=== PATIENT | male | born 1955 | race Caucasian/White ===

== ENCOUNTER 2019-12-25 13:23 | Observation (INO) | payer MEDICARE, SELFPAY ==
[2019-12-25] VITALS (37 sets, daily range): BP systolic 91–145; BP diastolic 46–86; PULSE 65–90; RESP 16–20; TEMP 36.7–36.8; O2SAT 93–97; BMI 29.0
--- NOTE | 2019-12-25 08:37 | ECG_ITS ---
Intraprocedure shortess of breath WITH CHEST PAIN 3-10. ONCE TEST WAS COMPLETE ARRYTHMIAS WERE NOTED ON THE EKG. THE PATIENT WAS ESCORTED TO THE BED TO LIE DOWN, BP 140/66. HR 125. AFTER 2 MINUTES OF RECOVERY THE CHEST PAIN WAS 4-10, BP 140/65, [address] 95[address] MTZ WAS NOTIFIED BY Chu BALL RN, [facility]. DR MTZ WILL COME TO [facility] TO LOOK AT EKGs PRIOR TO PATIENT GOING FOR 2ND SET OF NUCLEAR IMAGES. EXERCISE DATA: The patient was exercised by Coleman protocol. Baseline heart rate was 64 beats per minute. Baseline blood pressure was 109/68 millimeters of mercury. Target heart rate was 154 beats per minute. Maximum heart rate achieved was 166, which was 107 % of the target heart rate. Maximum blood pressure was 153/87 millimeters of mercury. Total exercise time was 5 minutes 53 seconds. Maximum METs achieved was 7.0, maximum VO2 was 24.5. The reason for ending the test was arrhythmia/ventricular tachycardia. The patient complained of [chest pain shortness of breath and dizziness, nonsustained ventricular tachycardia noted. Test was immediately stopped. Patient converted back into sinus rhythm immediately. He did not lose consciousness. ELECTROCARDIOGRAM: BASELINE: Showed sinus rhythm, normal axis, no significant ST-T changes at the baseline noted. EXERCISE: At the peak exercise level, ventricular tachycardia noted. Stress test was immediately stopped patient complained of chest pressure. He remained stable vital kemp RECOVERY: During the recovery period, and inferolateral ST depression noted. No arrhythmia noted CONCLUSION: 1. Exercise capacity fair. 2. Heart rate response was appropriate. 3. Blood pressure response was appropriate. 4. Symptoms suggestive of ischemia. 5. Electrocardiogram portion of the stress test was strongly suggestive of ischemia. 6. Nuclear scan will not be performed as patient has strongly positive EKG portion of stress test. We are planning to take patient to Bending Roll Operator immediately. Electronically Signed On 12-28-2019 18:10:56 CDT by Eduardo Mtz M.D. [email or web address]
--- NOTE | 2019-12-25 08:38 | NMCV_ITS ---
NM khadijah perf SPECT r/s* [id number] Tomas Vizcarra Age: 64 Gender: M : 1955 Exam Date: 12/25/2019 09:49 Ordering Phys: Kevan Sy Technologist: [place] Ron Exam Location: [facility] Indications: CHEST PAIN/ SHORTNESS OF BREATH STRESS TEST Please see separate stress test report in [facility] for full findings IMAGE PROTOCOL Rest Exercise Radiopharmaceutical Dose (mCi) Administration Site Administered by Rest: Tc-99m 10.7 IV [place]LL[place] Bautista Sestamibi Stress:Tc-99m 32.8 IV [place] Bautista Sestamibrooklynn Rest: 12/25/2019 60 Discovery 630 12/25/2019 0 Discovery 630 Radiopharmaceutical was injected at 85 % maximum heart rate. Stress images not taken. Patient transfered straight to shift lab technician from treadmill. SPECT RESULTS Technical Quality: Excellent Raw Data Analysis: Normal Image Corrections: No attenuation or motion correction applied Summed Stress Score: 0 Summed Rest Score: 2 Summed Difference Score: 0 PERFUSION FINDINGS Please note that this is a baseline rest images as patient due to ventricular tachycardia was taken to the Coin Teller. There is basal to mid anterior wall perfusion defect suggestive of lesion in the LAD Stress Image LV EF (%):Stress EDV (mL):EDVI (ml/m squared ):TID: Stress ESV (mL): ESVI (ml/m squared ): Rest Image LV EF (%): FUNCTIONAL FINDINGS: Not assess as there is no cine loop IMPRESSIONS Please note that this is a baseline rest images as patient due to ventricular tachycardia was taken to the Coin Teller. There is basal to mid anterior wall perfusion defect suggestive of lesion in the LAD Eduardo Mtz MD (Electronically Signed) Final Date: 27 December 2019 14:14 S
--- NOTE | 2019-12-25 11:07 | PC.NURSE ---
THE PATIENT HAD A POSITIVE TREADMILL STRESS TEST. DR BOYKIN IN [facility] AND ORDERED A LHC TO BE DONE AT 1300. THE PATIENT VERBALIZED HIS UNDERSTANDING. HE WILL BE AMBULATED OVER TO CPRU ROOM 4 TO BE PREPPED FOR LHC. ONCE IN THE ROOM THE PATIENT UPDATED HIS SPOUSE WHO IS IN THE VEHICLE IN THE HOSPITAL PARKING LOT. SHE WILL GO HOME TO [place], [place] AND DR. BOYKIN WILL CALL AFTER AFTER THE PROCEDURE.
[2019-12-25 11:52] LABS: Basophils # 0.1 10^3/uL (0.0-0.1); Basophils % 0.8 %; Eosinophils # 0.1 10^3/uL (0.0-0.8); Eosinophils % 0.6 %; Hematocrit 43.9 % (42.0-52.0); Hemoglobin 14.1 g/dL (11.7-16.6); Lymphocytes # 1.7 10^3/uL (0.8-4.8); Lymphocytes % 19.5 %; Mean Corpuscular HGB Conc 32.1 g/dL (30.0-36.0); Mean Corpuscular Hemoglobin 29.7 pg (28.0-34.0); Mean Corpuscular Volume 92.6 fL (80-94); Mean Platelet Volume 10.8 fL (7.4-10.4); Monocytes # 0.7 10^3/uL (0.2-0.9); Monocytes % 7.9 %; Neutrophils # 6.1 10^3/uL (1.8-7.7); Nucleated Red Blood Cells % 0 %; Platelet Count 185 10^3/cmm (130-400); Red Blood Count 4.74 10^6/uL (4.1-5.3); Red Cell Distribution Width 12.8 % (12.1-15.1); White Blood Count 8.6 10^3/uL (4.0-10.0)
[2019-12-25] MEDS: diphenhydrAMINE 50 mg Capsule PO (12:07)
[2019-12-25 12:20] LABS: INR 1.02 (0.8-1.2)
[2019-12-25 12:31] LABS: Anion Gap 18.6 (5-19); Blood Urea Nitrogen 13 mg/dL (8-23); Calcium 9.5 mg/dL (8.5-10.5); Carbon Dioxide 25 mmol/L (22-29); Chloride 100 mmol/L (98-107); Glomerular Filtration Rate 96.7 mL/min (90-130); Glucose 139 mg/dL (65-115); Osmolality Calculated 286 mOsm/kg (285-295); Potassium 4.6 mmol/L (3.5-5.1); Sodium 139 mmol/L (136-145)
--- NOTE | 2019-12-25 13:00 | XACV_ITS ---
Exam Room: [facility] Ht: 183 cm Wt: 97 kg BSA: 2.24 m2 Gender: Male : 1955 Any Known Allergies: No known allergies Exam Priority: Routine Procedure(s): Procedure Description: Diagnostic procedure Procedure Description: PCI procedure Procedure Description: Drug Eluting Coronary Stent Procedure Description: PTCA Procedure Description: Coronary Angiography Diagnostic Cath Status: Elective PCI Status: Emergency PCI Indication: NSTE - ACS Conclusions Indication for angiogram/PCI: Patient for worsening of angina underwent stress test today . On the treadmill patient was noted to have ventricular tachycardia along with chest pain for which test was stopped immediately. He was taken to the Service Employee he was found to have significant 95% proximal LAD stenosis treated with drug-eluting stent. Recommendations 1-Return to inpatient for close monitoring and routine cath care 2-Risk factor modification for secondary prevention 3-Statin and aspirin 81 mg life--long, if tolerated 4-Patient was pre-loaded with 600 mg of Plavix, continue Plavix 75mg p.o. daily for at least one year. We will assess at the end of one year again to continue if further or not 5-Continue optimal medical management 6-Follow up with Dr. Mtz in four weeks and your primary care in 10 days . Interventional RX Recommendation: PCI w/o planned CABG Diagnostic RX Recommendation: PCI w/o planned CABG Pressures Phase:Rest AO : / ( 0 mmHg ) @ 8:53:00 AM 145 mmHg / 121 mmHg ( 133 mmHg ) @ 8:54:00 AM 125 mmHg / 92 mmHg ( 107 mmHg ) @ 8:59:00 AM 139 mmHg / 89 mmHg ( 110 mmHg ) @ 9:00:00 AM 124 mmHg / 121 mmHg ( 102 mmHg ) @ 9:06:00 AM 123 mmHg / 84 mmHg ( 103 mmHg ) @ 9:11:00 AM 120 mmHg / 115 mmHg ( 102 mmHg ) @ 9:17:00 AM 114 mmHg / 83 mmHg ( 94 mmHg ) @ 9:26:00 AM Clinical Evaluation EBL: 5mL-10mL Procedural Details Procedure Consent Obtained. Pre-Procedure Time Out. Identified patient by full name and date of as verbalized by the patient/guarantor. Does the consent match the physician's order: Yes. Accurate & Complete Informed Consent: Yes. Inpatient/Outpatient History & Physical on Chart: Yes. If H&P is completed, is and addenduem needed: Yes; If yes, is the addendum complete: N/A. Visualize and Verify Site with Patient/Guarantor: N/A. Relevant Radiology Images available: Yes. Pre-op teaching completed and patient verbalized understanding. The risks, benefits, and alternatives of sedation and/or procedure were discussed by physician. The patient agrees to continue. Procedure started. PERRLA. Strong, equal hand carpenter foreman bilaterally. Lungs clear x 5 lobes. IV Site on Arrival: 22 gauge in the right wrist. IV Fluids: 0.9% NaCl at KVO. 0 mL infused prior to cathode ray tube salvage processor. Pre Procedural Pulses: right radial was 3+. Oxygen started at 2liters/min via nasal canula. right groin was prepped with chloroprep then draped in the usual sterile fashion. right radial was prepped with chloroprep then draped in the usual sterile fashion. Baseline sample Acquired. HR: 90 BPM. Physician notified. Patient's family unavailable. Baseline sample Acquired. HR: 79 BPM. Physician arrived. [facility] Clinical Fraility Score: 3: Managing Well. Service Employee Indications: Worsening Angina. Service Employee Indications: New Onset Angina. Chest Pain Symptom Assessment: Typical Angina Symptoms. Correct patient, site and procedure confirmed by cath team. Current diagnosis: Chest Pain. Physician scrubbed in. Immediate Pre-Procedure Time Out. Correct Patient: Yes; Correct Procedure: Yes; Correct Site: Yes; Correct Patient Position: Yes; Correct Supplies: Yes; Dried Flammable Prep: Yes; Blood Products Available: N/A;. Lidocaine 1% infiltrated to the right radial. Arterial access obtained. A 6 kosovan TIG catheter in over wire. Multiple views taken of left coronary artery. Catheter redirected to the RCA. Multiple views taken of right coronary artery. Catheter removed over the exchange wire. 6 kosovan XB 3.5 SH guide catheter was inserted over the wire. PCI Indication: New Onset Angina. Guide catheter out. 6 kosovan JL 4 SH guide catheter was inserted over the wire. [place] guidewire was advanced through the guide catheter to lesion in the prox LAD. Inflation number : 1 A AB TREK 2.50X15 RX BALLOON was prepped and advanced across the Prox LAD , then inflated to 12 STEPHANIE for 0:18 seconds. Inflation number: 2 The AB TREK 2.50X15 RX BALLOON was reinflated across the Prox LAD, to 12 STEPHANIE for 0:11 seconds. Balloon out. Inflation Number : 3 A MDT R COLEEN 3.0X18 BRIAN -Lot Number# [id number] exp. 07/19/2021 was prepped and advanced across the Prox LAD. The stent was deployed at 14 STEPHANIE for 0:23 seconds. Stent balloon out over wire. Inflation number : 4 A MDT NC EUPHORA RX [id number] BALLOON was prepped and advanced across the Prox LAD , then inflated to 10 STEPHANIE for 0:18 seconds. Inflation number: 5 The MDT NC EUPHORA RX [id number] BALLOON was reinflated across the Prox LAD, to 12 STEPHANIE for 0:20 seconds. Balloon and wire out. Results checked. Guide catheter out. Guide catheter out. TR band placed. Hemostasis obtained. Vital chart was stopped. A TR Band was successful obtaining hemostatsis at the Right Radial artery insertion site. Post Procedure: Pulses reassessed and unchanged. PERRLA. Strong, equal hand carpenter foreman bilaterally. No VTE prophylaxis required. Contrast type used: Omnipaque 300 mgI/mL, 500 mL bottle. Omnipaque 220mL. Post-op diagnosis: Worsening Angina. Complications: None. Medication's Wasted: Lidocaine 1% = 18 mL. Medication's Wasted: Heparin = 3000 units. Medication's Wasted: Nitro = 49.8 mg. Total IV fluids: 150 mL. Estimated blood loss: 5mL-10mL. Procedure completed. Patient transferred by wheelchair to 1st floor. Site: Right Radial artery Sheath Size: 6 Fr Hemostasis Method: TR Band Hemostasis Success: Successful Procedure Medications Start: 1:38 PM Stop: 1:38 PM Medication: Versed Amount: 1 mg Route: I.V. Start: 1:38 PM Stop: 1:38 PM Medication: Fentanyl Amount: 50 mcg Route: I.V. Start: 1:43 PM Stop: 1:43 PM Medication: Versed Amount: 1 mg Route: I.V. Start: 1:43 PM Stop: 1:43 PM Medication: Fentanyl Amount: 50 mcg Route: I.V. Start: 1:48 PM Stop: 1:48 PM Medication: Nitrogylcerin Amount: 200 mcg Route: I.A. Start: 1:51 PM Stop: 1:51 PM Medication: Heparin Amount: 5000 units Route: I.V. Start: 1:56 PM Stop: 1:56 PM Medication: Heparin Amount: 3000 units Route: I.V. Start: 2:09 PM Stop: 2:09 PM Medication: Versed Amount: 1 mg Route: I.V. Start: 2:09 PM Stop: 2:09 PM Medication: Fentanyl Amount: 50 mcg Route: I.V. Start: 1:56 PM Stop: 1:56 PM Medication: Aggrastat 12.5 mg/250 mL Amount: 49 ml Route: I.V. bolus Start: 1:56 PM Stop: 1:56 PM Medication: Aggrastat 12.5 mg/250 mL Amount: 17.6 ml/hr Route: I.V. drip Start: 2:17 PM Stop: 2:17 PM Medication: Versed Amount: 1 mg Route: I.V. Start: 2:17 PM Stop: 2:17 PM Medication: Fentanyl Amount: 50 mcg Route: I.V. I, the attending physician, have reviewed and verified all procedure medications. Yes, all medications given per verbal order History/Risk Factors Hypertension: Yes Dyslipidemia: No Diabetic Therapy: Oral Peripheral Arterial Disease (PAD): No Myocardial Infarction (HI): No Obesity: No Renal Disease: No Tobacco Use: Never Prior Interventions PCI: No CABG: No Valve Surgery: No Report Signatures Finalized by:Eduardo Mtz MD on 01/07/2020 6:38:09 PM
--- NOTE | 2019-12-25 13:14 | SUR.PREOP ---
DR BOYKIN AT BEDSIDE. H & P COMPLETED AND THE PATIENT WAS AMBULATED TO THE EDITORIAL PROJECT MANAGER WITH THIS NURSE AND BENITO BALL RN, [facility].
--- NOTE | 2019-12-25 13:19 | PM.HP ---
Providers/Chief Complaint Admitting Physician: Eduardo Mtz MD Primary Care Provider: Kevan Sy Chief Complaint: Chest Pain, Shortness of Breath History of Present Illness Tomas Vizcarra is a 64 year old male referred for stress test due to worsening of chest pain and shortness of breath upon mild to moderate exertion by Dr. Sy. In second and 1/2-minute of treadmill stress test patient started feeling chest pain shortness of breath, fast ventricular tachycardia was noted patient was immediately moved to bed and advised to cough. He immediately converted back into sinus rhythm complaining of some chest pressure which over couple of minutes got better. I examined and interviewed the patient. Currently stable. Patient past medical history significant for hypertension and diabetes mellitus type 2. He is on metformin. He denies history of smoking. For the past few weeks he has been struggling with worsening of shortness of breath and chest pressure every time he walks especially uphill. Since patient has ventricle tachycardia he falls under unstable category therefore we will proceed with coronary angiogram now. Patient has been explained all risk benefit and alternative for the procedure. He was explained the risk of stroke bleeding hematoma emergent coronary artery bypass surgery. He would like to proceed with it. Medications/Allergies Home Medications Medication Instructions Recorded Confirmed Last Taken Type lisinopril 10 mg PO DAILY 12/25/19 12/25/19 12/23/19 06:30 History metformin 500 mg PO DAILY 12/25/19 12/25/19 12/24/19 06:30 History metoprolol succinate 50 mg PO DAILY 12/25/19 12/25/19 12/23/19 06:30 History Allergies Allergy/AdvReac Type Severity Reaction Status Date / Time No Known Allergies Allergy Verified 12/25/19 12:25 PFSH Acute PFSH: Medical History (Updated 12/25/19 @ 13:33 by Eduardo Mtz MD) Diabetes mellitus, type II HTN (hypertension) Social History Smoking and tobacco status: never smoked Vitals/I&O/Wt Last Vital Signs Temp 98.2 F 12/25/19 12:12 Pulse 82 12/25/19 12:12 Resp 16 12/25/19 12:12 BP 118/86 12/25/19 12:12 Pulse Ox 97 12/25/19 12:12 Weight last 48 hrs Weight 214 lb Weight 214 lb Physical Exam Narrative: EXAM NARRATIVE: GENERAL: Patient is alert, awake and oriented x3. NECK: No jugular vein distension. HEENT: No cyanosis. No icterus. No pallor. HEART: Regular S1 and S2. No murmur, rub or gallop. LUNGS: Clear to auscultate bilaterally. ABDOMEN: Soft, nontender and nondistended. Positive bowel sounds. No guarding, rebound or tenderness. CENTRAL NERVOUS SYSTEM: Grossly nonfocal. EXTREMITIES: Lower extremities without edema bilaterally. Data : 12/25/19 11:31 12/25/19 11:31 A&P Assessment and plan (1) Unstable angina: Patient had ventricle tachycardia noted in the early part of the stress test. Stress test was stopped. He was feeling chest pain which is resolved now. Due to high risk for acute coronary syndrome we will take him to the Computer Help Desk Specialist now. Status: Acute Code(s): I20.0 - Unstable angina (2) Ventricular tachycardia: Most likely ischemic. We will proceed with urgent left heart cath. Further plan will be advised. Status: Acute Code(s): I47.2 - Ventricular tachycardia (3) HTN (hypertension): Well-controlled. Continue current regimen. He is on beta-allison and lisinopril Status: Acute Code(s): I10 - Essential (primary) hypertension (4) Diabetes mellitus, type II: Status: Acute Code(s): E11.9 - Type 2 diabetes mellitus without complications Attestations Medical Necessity Statement*: I am not expecting his stay to cross more than 1 midnight Coding Level of Care Code New Pt Acute Director Channel for g Fwd Patient Type New History Detailed Exam Detailed Medical Decision Making High Complexity Diagnoses Unstable angina I20.0 Ventricular tachycardia I47.2 HTN (hypertension) I10 Diabetes mellitus, type II E11.9
--- NOTE | 2019-12-25 14:45 | USCV_ITS ---
Zackery Tomas Age: 64 Gender: M : 1955 Exam Date: 12/25/2019 15:04 Ordering Phys: Eduardo Mtz MD ([email or web address]) Technologist: Mary Alice Golden Exam Location: [facility] [place] Indication: CHEST PAIN, VTACH BP: 130 / 72 HR: 70 Rhythm: Sinus Technical Quality: Adequate MEASUREMENTS (Male / Female) Normal Values 2D ECHO LV Diastolic Diameter PLAX 3.8 cm 4.2 - 5.9 / 3.9 - 5.3 cm LV Systolic Diameter PLAX 2.2 cm LV Chamber Size 3.5 cm IVS Diastolic Thickness 1.2 cm 0.6 - 1.0 / 0.6 - 0.9 cm IVS Systolic Thickness 1.6 cm LVPW Diastolic Thickness 2.2 cm 0.6 - 1.0 / 0.6 - 0.9 cm LVPW Systolic Thickness 2.3 cm RV Chamber Size 2.4 cm LVOT Diameter 2.1 cm LV Ejection Fraction 2D Teich 75.1 % LV Ejection Fraction MOD 2C 48.2 % LV Ejection Fraction 2C AL 48.9 % LA Diameter 4.1 cm LA Width 2.9 cm LA Height 4.2 cm RA Width 1.8 cm RA Height 3.2 cm Aorta at Sinotubular Diameter 3.0 cm M-MODE LV Diastolic Diameter MM 4.6 cm 4.2 - 5.9 / 3.9 - 5.3 cm LV Systolic Diameter MM 3.2 cm LV Ejection Fraction MM Teich 57.5 % IVS Diastolic Thickness MM 1.2 cm 0.6 - 1.0 / 0.6 - 0.9 cm IVS Systolic Thickness MM 1.3 cm LVPW Diastolic Thickness MM 1.2 cm 0.6 - 1.0 / 0.6 - 0.9 cm LVPW Systolic Thickness MM 1.7 cm Aortic Annulus Diameter 3.4 cm LA Ao Ratio MM 1.2 MV E Point Septal Separation 0.8 cm DOPPLER AV Peak Velocity 130.0 cm/s LVOT Peak Velocity 92.0 cm/s AV Area Cont Eq vti 2.5 cm squared AV Area Cont Eq pk 2.4 cm squared MV Area PHT 6.7 cm squared Mitral E to A Ratio 0.5 MV E' Velocity 13.0 cm/s Mitral E to MV E' Ratio 3.5 Mitral E to LV E' Lateral Ratio 2.7 Mitral E to LV E' Septal Ratio 4.8 TR Peak Velocity 127.0 cm/s TR Peak Gradient 6.5 mmHg TV Peak E Velocity 51.0 cm/s Right Atrial Pressure 3.0 mmHg Pulmonary Artery Systolic Pressu 9.5 mmHg PV Peak Velocity 102.0 cm/s RV Acceleration Time 0.1 s RV Ejection Time 0.3 s RV AcT/ET 0.4 FINDINGS Left Ventricle Normal left ventricular cavity size. Normal left ventricular systolic function. No regional wall motion abnormalities. Left ventricular ejection fraction is estimated at 57 %. No regional wall motion abnormalities. Grade I/IV diastolic dysfunction (abnormal relaxation filling pattern), normal to mildly elevated filling pressures. Right Ventricle The right ventricle is normal in size and function. Right Atrium The right atrium is normal in size. Left Atrium The left atrium is normal in size. Mitral Valve Structurally normal mitral valve without significant stenosis or prolapse. There is no mitral regurgitation. Aortic Valve Structurally normal aortic valve without significant sclerosis or stenosis. There is no aortic regurgitation. Tricuspid Valve Structurally normal tricuspid valve without significant stenosis or regurgitation. Pulmonary artery systolic pressure is normal. Pulmonic Valve Structurally normal pulmonic valve without significant stenosis. There is no pulmonic regurgitation. Pericardium Normal pericardium without effusion. Aorta Normal ascending aorta dimension. CONCLUSIONS 1-Normal left ventricular cavity size. Normal left ventricular systolic function. No regional wall motion abnormalities. Left ventricular ejection fraction is estimated at 57 %. No regional wall motion abnormalities. Grade I/IV diastolic dysfunction (abnormal relaxation filling pattern), normal to mildly elevated filling pressures. 2-No significant chamber abnormalities. 3-There is no pericardial effusion. 4-No significant valve abnormalities. 5-Pulmonary artery systolic pressure is within normal limits. 6-Right atrial pressure is around 5 mm of mercury. 7-There are no prior echocardiogram studies to compare. Eduardo Mtz MD (Electronically Signed) Final Date: 25 December 2019 18:45 S
--- NOTE | 2019-12-25 15:09 | PC.NURSE ---
JEAN PAUL BOYKIN ASKED NURSE TO NON ADMINISTER 1800 DOSE OF BRILINTA 90MG.
[2019-12-25] MEDS: ticagrelor 90 mg Tablet 180 MG PO (15:16)
--- NOTE | 2019-12-25 17:02 | PC.NURSE ---
AGGRASTAT STOPPED AT 1600.
[2019-12-25] MEDS: atorvastatin 40 mg Tablet PO (20:06)
[2019-12-25 20:56] LABS: Glucose Point of Care 98 mg/dL (70-110)
--- NOTE | 2019-12-25 22:00 | PC.NURSE ---
TR Band removed from right wrist. Pressure dressing applied. IV site to right wrist cleaned with new kyara guard applied. Will monitor.
[2019-12-26] VITALS: BP 115/56; PULSE 70; RESP 18; O2SAT 94
[2019-12-26 01:00] VITALS: BP 113/67; PULSE 66; RESP 18; O2SAT 95
--- NOTE | 2019-12-26 02:12 | PC.NURSE ---
Patient resting with eyes closed. Respirations even and unlabored. Dressing to right wrist dry and intact with no hematoma or drainage noted. Will monitor.
[2019-12-26] MEDS: acetaminophen 325 mg Tablet 650 MG PO (03:21)
--- NOTE | 2019-12-26 03:25 | PC.NURSE ---
Complaining of posterior left shoulder pain with no radiation to arm or jaw. Rating pain at 2 out of 10. Tylenol 650mg PO given per patient request. Will monitor.
[2019-12-26 04:00] VITALS: BP 95/73; PULSE 66; RESP 18; TEMP 36.6; O2SAT 96
[2019-12-26 04:39] LABS: Basophils # 0.1 10^3/uL (0.0-0.1); Basophils % 0.8 %; Eosinophils # 0.2 10^3/uL (0.0-0.8); Eosinophils % 2.4 %; Hematocrit 41.2 % (42.0-52.0); Hemoglobin 13.2 g/dL (11.7-16.6); Lymphocytes # 2.5 10^3/uL (0.8-4.8); Lymphocytes % 31.6 %; Mean Corpuscular Hemoglobin 30.4 pg (28.0-34.0); Mean Corpuscular Volume 94.9 fL (80-94); Mean Platelet Volume 10.5 fL (7.4-10.4); Monocytes # 0.9 10^3/uL (0.2-0.9); Monocytes % 10.8 %; Neutrophils # 4.3 10^3/uL (1.8-7.7); Neutrophils % 54.1 %; Nucleated Red Blood Cells % 0 %; Platelet Count 169 10^3/cmm (130-400); Red Blood Count 4.34 10^6/uL (4.1-5.3); White Blood Count 7.9 10^3/uL (4.0-10.0)
[2019-12-26 04:59] LABS: Anion Gap 16.1 (5-19); Blood Urea Nitrogen 14 mg/dL (8-23); Calcium 8.8 mg/dL (8.5-10.5); Carbon Dioxide 23 mmol/L (22-29); Chloride 102 mmol/L (98-107); Glomerular Filtration Rate 74.8 mL/min (90-130); Glucose 99 mg/dL (65-115); Osmolality Calculated 280 mOsm/kg (285-295); Potassium 4.1 mmol/L (3.5-5.1); Sodium 137 mmol/L (136-145)
[2019-12-26 06:22] LABS: Glucose Point of Care 102 mg/dL (70-110)
[2019-12-26 07:20] VITALS: BP 115/71; PULSE 62; RESP 18; TEMP 36.5; O2SAT 96
[2019-12-26] MEDS: aspirin 81 mg EC Tablet PO (09:16)
[2019-12-26] MEDS: ticagrelor 90 mg Tablet PO (09:16)
[2019-12-26] MEDS: metoprolol succinate ER (24 HR) 50 mg Tablet PO (09:16)
[2019-12-26] MEDS: lisinopril 10 mg Tablet PO (09:16)
[2019-12-26 10:59] VITALS: BP 108/69; PULSE 65; RESP 18; TEMP 36.9; O2SAT 96
[2019-12-26 11:25] VITALS: BP 108/69; PULSE 65; RESP 18; TEMP 36.9; O2SAT 96
[2019-12-26 11:27] LABS: Glucose Point of Care 109 mg/dL (70-110)
--- NOTE | 2020-01-15 17:37 | PM.DCS ---
Discharge Providers Date of Admission: 12/25/19 13:23 Date of Discharge: 2019 Attending Provider at Admission: Eduardo Mtz MD Attending Provider at Discharge: Kevan Sy Primary Care Provider: Kevan Sy Diagnoses at Discharge Discharge Diagnosis (1) Unstable angina: Status: Acute (2) Ventricular tachycardia: Status: Acute (3) HTN (hypertension): Status: Acute (4) Diabetes mellitus, type II: Status: Acute Reason for Visit Reason for Visit: Reason For Visit: Chest Pain, Shortness of Breath Hospital Course Hospital Course: 64-year-old male for angina underwent stress test during stress test patient had episode of ventricular tachycardia he was taken to the Manager Implementation. He was found to have significant proximal LAD lesion which was treated with drug-eluting stent. Postop course remains uncomplicated. Patient did overnight fine. Next morning he was discharged home. He He will be following up with Dr. Mtz in the cardiology clinic. Discharge Data Data Completed and Pending: Completed Studies During Hospitalization Category Date Time Status SUBSURFACE AUGMENTEE OPERATOR request for service Routin e Exams 12/25/19 13:[address] MIBI [Sestamibi Stress Test Reque st Exams 12/25/19 08:37 Completed ] Routine NM khadijah perf SPECT r/s* 59611 Routin e Nuc Med 12/25/19 08:38 Completed CV echo complete* [id number] Routine Ultrasound 12/25/19 14:45 Completed Vitals: Last Vital Signs Temp 98.4 F 12/26/19 11:25 Pulse 65 12/26/19 11:25 Resp 18 12/26/19 11:25 BP 108/69 12/26/19 11:25 Pulse Ox 96 12/26/19 11:25 Discharge Plan Discharge Patient Disposition: Home, Self-Care Condition: Stable Prescriptions: New atorvastatin 40 mg Tablet 40 mg PO BEDTIME Qty: 90 RF: 4 aspirin 81 mg Tablet,Delayed Release (Dr/Ec) 81 mg PO DAILY Qty: 90 RF: 4 Brilinta 90 mg Tablet 90 mg PO BID Qty: 90 RF: 0 Continued metoprolol succinate 50 mg Tablet Extended Release 24 Hr 50 mg PO DAILY RF: 0 lisinopril 10 mg Tablet 10 mg PO DAILY RF: 0 No Action metformin 500 mg tablet 1,000 mg PO DAILY RF: 0 Discharge Orders: Discharge Order (Routine); Ordered 03/31/20 Ordered By: Eduardo Mtz Referrals: Eduardo Mtz MD [Physician] - (You have follow-up appointment with Dr. Mtz on April 01 at 3:45p.m. If, you have any questions or need to reschedule. Please, call ) Sara Maria FNP [Nurse Practitioner] - (You have an telephone follow-up with Sara Maria on January 01 at 11:30a.m. If, you have any questions, please call ) Discharge Diet: Cardiac and Diabetic Discharge Activity: Resume usual activity Patient Instructions: Aspirin (By mouth), Atorvastatin (By mouth), Ticagrelor (By mouth), Supraventricular Tachycardia (DC), Left Heart Catheterization (DC), Right Heart Catheterization (DC), Coronary Angioplasty (DC), Diabetes Mellitus Type 2 in Adults (DC), Acute Coronary Syndrome (GEN), Hypertension (DC), Post Angiogram Home Care Instructions Activity Restrictions/Additional Instructions: Do not lift more than gallon of milk for next 2 days. Follow-up with Sara Maria cardiology nurse practitioner in [address] Mtz in 3 months Discharge Date/Time: 12/26/19 12:15 Discharge Attestations Time Spent in Discharge Care*: greater than 30 min Specific Discharge Activities: Specific discharge activities: educating patient Quality Metrics Clinical Quality Measures During this hospital stay, did patient experience: None Coding Level of Care Code New Pt Acute [employer] Rep for Chg Fwd Patient Type New History Expanded Problem Focused Exam Expanded Problem Focused Medical Decision Making Moderate Complexity Diagnoses Unstable angina I20.0 Ventricular tachycardia I47.2 HTN (hypertension) I10 Diabetes mellitus, type II E11.9
== END 2019-12-26 12:15 | disposition home or self-care (01) ==
LOC: CSU 13:29
PROVIDERS: Admitting Provider Internal Medicine Cardiovascular Disease; Family Provider Family Medicine; PCP Family Medicine; Visit Provider Family Medicine
DX: I20.0 Unstable angina (principal); I47.2 Ventricular tachycardia; I10 Essential (primary) hypertension; E11.9 Type 2 diabetes mellitus without complications; Z79.84 Long term (current) use of oral hypoglycemic drugs
CPT/HCPCS: 12345; 36415; 36416; 78452; 80048; 82962; 85025; 85610; 93306; 93454; A9500; C1725; C1769; C1874; C1887; C1894; C9600; G0378; J1644; J2001; J2250; J3010; J3246; J3490; J7030; Q0163; Q9967

== ENCOUNTER → 2020-01-02 11:50 | Outpatient (BNVA) | payer MEDICARE, SELFPAY | PROVIDERS: Family Provider Family Medicine; PCP Family Medicine; Visit Provider Nurse Practitioner Family | DX: I25.10 Atherosclerotic heart disease of native coronary artery without angina pectoris (principal); I25.119 Atherosclerotic heart disease of native coronary artery with unspecified angina pectoris | CPT/HCPCS: 80048 ==

== ENCOUNTER → 2020-07-05 12:05 | Outpatient (BNVA) | payer MEDICARE, SELFPAY | PROVIDERS: Family Provider Family Medicine; PCP Family Medicine; Visit Provider Surgery | DX: Z20.828 Contact with and (suspected) exposure to other viral communicable diseases (principal) | CPT/HCPCS: 87635 ==

== ENCOUNTER 2020-07-10 12:48 | Day surgery (SDC) | payer MEDICARE, SELFPAY ==
[2020-07-09 12:35] VITALS: BMI 28.3
[2020-07-10 13:06] VITALS: BP 140/80; PULSE 58; RESP 18; TEMP 36.1; O2SAT 97
--- NOTE | 2020-07-10 13:19 | W.PM.OPSUD ---
Surgery/Procedure H&P Update DATE OF PROCEDURE: July 10, 2020 DATE H&P PERFORMED: 07/05/20 H&P UPDATE INFORMATION: I have reviewed H&P completed within last 30 days, I have examined patient prior to procedure and No changes to prior documentation PREOP DIAGNOSIS: Cholelithiasis PLANNED PROCEDURE: Operation Date: 07/10/20 14:30 Proposed Procedures p Laparoscopic Possible Open Cholecystectomy 94278 K80.20(Not Applicable) - Benny Mathur MD
[2020-07-10 13:29] LABS: Glucose Point of Care 107 mg/dL (70-110)
[2020-07-10] MEDS: sodium chloride 0.9% 1,000 ML 30 ML IV (13:35)
--- NOTE | 2020-07-10 13:37 | ANES.PREANE2 ---
Pre-Anesthetic Assessment Pre-Anesthetic Assessment: Height/Weight: Height 1.83 m Weight 94.801 kg Temp Pulse Resp BP Pulse Ox 97.0 F L 58 L 18 140/80 97 07/10/20 13:06 07/10/20 13:06 07/10/20 13:06 07/10/20 13:06 07/10/20 13:06 Preop Diagnosis: Cholelithiasis Proposed Procedure: Operation Date: 07/10/20 14:30 Proposed Procedures p Laparoscopic Possible Open Cholecystectomy 02757 K80.20(Not Applicable) - Benny Mathur MD Familial anesthetic complications: dizziness for 5 days after his tonsils were taken out as a child Was Beta Silvio taken within 24 hours: Yes Last intake: Intake Last Liquid Date 07/10/20 Last Liquid Time 07:00 Last Solid Date 07/09/20 Last Solid Time 21:00 Social: Social History: No alcohol and No tobacco Exam: Pre-Anes Outpt Exam: alert, oriented x 3, clear to auscultation bilaterally and regular rate & rhythm Airway: Cervical ROM: WNL MP: 3 Dentition: False Additional comments: full hernandez CV/HEM: CV/HEM: CAD (LAD stent placed urgently after V Tach episode during his stress test, off brillinita, approved by farhan - doing well now) and HTN Metabolic: Metabolic: DM and Morbid obesity Anesthetic Plan: ASA status: 3 Anesthesia: General Risk of > 500 ml blood loss (7ml/kg in children): No Meds/Allergies Current Medications: Current Medications Generic Name Dose Route Start Last Admin Trade Name Freq PRN Reason Stop Dose Admin Sodium Chloride 1,000 mls @ 30 ml s/hr 07/10/20 13:15 07/10/20 13:35 Sodium Chloride 0.9% IV 07/11/20 13:14 30 mls/hr .Q24H [facility] Administration PFSH Anesthesia PFSH: Medical History CAD (coronary artery disease) Coronary artery disease Diabetes mellitus, type II HTN (hypertension) Surgical History (Updated 07/10/20 @ 13:21 by Benny Mathur MD) H/O circumcision H/O heart artery stent H/O vasectomy with reversal History of tonsillectomy Status post laparoscopic cholecystectomy (07/10/20) Family History Mother Cancer Diabetes Hypertension Grandfather Cancer Hypertension Grandmother Cancer Hypertension Sister Hypertension Father Cancer Denies family history of CAD (coronary artery disease) Clotting disorder Dementia Hyperlipidemia Psychiatric illness Chronic kidney disease (CKD) Suicide Anesthesia complication Bleeding disorder Family history of premature coronary artery disease Lung disease Stroke Social History Smoking and tobacco status: never smoked Alcohol intake: current Alcohol intake frequency: holidays/special occasions only Alcohol type: beer Household members: spouse Marital status: Current occupational status: retired History of recent travel: No Data Anesthesia Other Labs: Laboratory Results - last 48 hr 07/10/20 13:26 POC Glucose 107 Cardiac Studies: No Data to Display
--- NOTE | 2020-07-10 13:55 | ECG_ITS ---
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 Measurements Intervals [place] Rate: 53 P: 51 DE: 235 QRS: 3 QRSD: 93 T: 30 QT: 453 QTc: 427 Interpretive Statements SINUS BRADYCARDIA WITH FIRST DEGREE AV BLOCK LOW QRS VOLTAGE IN PRECORDIAL LEADS [QRS DEFLECTION < 1.0 mV IN CHEST LEADS] No previous ECG available for comparison Electronically Signed On 07-11-2020 20:24:09 CDT by Froy Bynum M.D. [id number]
[2020-07-10 14:38] VITALS: BP 100/74; PULSE 52; RESP 18; TEMP 37; O2SAT 97
[2020-07-10 15:27] VITALS: BP 112/68; PULSE 63; RESP 16; TEMP 36.8; O2SAT 99
[2020-07-10 15:30] VITALS: PULSE 58; RESP 15; O2SAT 100
[2020-07-10 15:35] VITALS: BP 108/61; PULSE 58; RESP 16; TEMP 37; O2SAT 99
[2020-07-10 15:57] VITALS: BP 100/74; PULSE 48; RESP 18; TEMP 37; O2SAT 97
[2020-07-10] MEDS: HYDROcodone-acetaminophen 5-325 mg Tablet 1 TAB PO (16:25)
--- NOTE | 2020-07-10 16:30 | ANE.PACU2 ---
Inpatient post-anesthesia follow up: Airway intact: Yes Vital signs: Temperature 98.6 F Pulse Rate 48 Respiratory Rate 18 Blood Pressure 100/74 Pulse Oximetry 97 Oxygen Delivery Me thod Room Air Oxygen Flow Rate 6 Fraction of Inspir ed Oxygen Hydration adequate: Yes Nausea and vomiting: No Pain level: 2 Mental status: Baseline
--- NOTE | 2020-07-11 14:09 | PM.OP ---
Operative Report Date of procedure: July 11, 2020 Pre-op Diagnosis: Cholelithiasis Post-op Diagnosis: Chronic cholecystitis Cholelithiasis Procedure Done: Laparoscopic cholecystectomy Specimens removed/disposition: Gallbladder Surgeon: Benny Mathur Anesthesia: General Condition: stable Disposition: PACU Procedure: The patient was taken to the operating room and was intubated under general anesthesia. After the antibiotic had been administered, the abdomen was prepped and draped in a sterile manner. Using a #15 blade, a 1 centimeter infraumbilical curvilinear incision was made and using an open Denny technique the peritoneal cavity was entered. A 10 millimeter port was placed and 15 millimeters of pneumoperitoneum was created. A 10 millimeter, 30 degrees scope was then introduced. Three 5 millimeter ports were placed in the epigastric, midclavicular and the anterior axillary line two fingerbreadths below the costal margin on the right side under the direct visualization. Ratcheted forceps were introduced into the lateral most port and was used to retract the fundus of the gallbladder cephalad and using forceps the infundibulum of the gallbladder was retracted laterally. Using L-hook cautery the peritoneum overlying the Calot's triangle was opened medially and laterally until the cystic duct and the cystic artery were skeletonized. Dissection was carried along the body of the gallbladder and after ensuring critical view of safety, 4 clips applied on the cystic duct and 3 clips applied on the cystic artery and cut leaving, 3 clips on the remaining portion of the duct and 2 clips on the remaining portion of the artery. The rest of the gallbladder was dissected off the liver using L-hook cautery. There was no bleeding or bile leaking noted from the gallbladder fossa and the clips appeared to be in place. An EndoCatch bag was introduced to remove the gallbladder. All the ports were removed under direct visualization and there was no bleeding noted from the port sites. The fascia of the umbilicus was closed using [id number] 0 Vicryl sutures and the subcutaneous tissue was approximated using 3-0 Vicryl sutures. The skin at all four ports were closed using 4-0 Monocryl and Dermabond. A total of 10 millimeters of 0.5% Marcaine was infiltrated around the port sites. The patient was stable throughout the procedure.
== END 2020-07-10 16:29 | disposition home or self-care (01) ==
PROVIDERS: PCP Family Medicine; Visit Provider Surgery
PROC: 0FT44ZZ Resection of Gallbladder, Percutaneous Endoscopic Approach (ICD-10-PCS; CPT 47562; principal; 2020-07-10 14:30)
DX: K80.10 Calculus of gallbladder with chronic cholecystitis without obstruction (principal); I25.10 Atherosclerotic heart disease of native coronary artery without angina pectoris; I10 Essential (primary) hypertension; E11.9 Type 2 diabetes mellitus without complications; E66.01 Morbid (severe) obesity due to excess calories; Z68.28 Body mass index [BMI] 28.0-28.9, adult; Z79.82 Long term (current) use of aspirin; Z79.84 Long term (current) use of oral hypoglycemic drugs
CPT/HCPCS: 47562; 12345; 36416; 82962; 88304; 93005; J0131; J0690; J2405; J2704; J2710; J2765; J3010; J3490; J7030

== ENCOUNTER → 2022-01-22 14:12 | Outpatient (BNVA) | payer MEDICARE, SELFPAY | PROVIDERS: PCP Family Medicine; Visit Provider Internal Medicine Cardiovascular Disease | DX: R07.9 Chest pain, unspecified (principal); R00.1 Bradycardia, unspecified; I44.0 Atrioventricular block, first degree; I25.10 Atherosclerotic heart disease of native coronary artery without angina pectoris; I10 Essential (primary) hypertension; Z95.5 Presence of coronary angioplasty implant and graft | CPT/HCPCS: 93005; 99214 ==

== ENCOUNTER → 2022-02-18 09:51 | Outpatient (BNVA) | payer MEDICARE, SELFPAY | PROVIDERS: PCP Family Medicine; Referring Provider Family Medicine; Visit Provider Orthopaedic Surgery | DX: M19.012 Primary osteoarthritis, left shoulder (principal); M25.512 Pain in left shoulder | CPT/HCPCS: 73030; 99204 ==

== ENCOUNTER 2022-03-13 10:03 | Outpatient (CLI) | payer MEDICARE, SELFPAY ==
--- NOTE | 2022-03-13 11:00 | CT_ITS ---
WS: [id number] CT LEFT SHOULDER, NONCONTRAST. 3-D imaging. HISTORY: M19.012 - Primary osteoarthritis, left shoulder Technique: All CT scans at [facility] use at least one of these dose optimization techniques: automated exposure control; mA and/or kV adjustment per patient size (includes targeted exams where dose is matched to clinical indication); or iterative reconstruction. DLP: 811.54 mGy.cm COMPARISON: 02/18/2022 Moderate narrowing of the glenohumeral joint. Osteophytic ridging at the humeral head and glenoid. Th ere is bone upon bone along the inferior surface of the glenohumeral joint with associated osteophyte formation. Small subchondral cysts at the humeral head. Very mild narrowing of the AC joint. No suba cromial impingement. No fracture or dislocation. No osseous destruction. Mild atrophy of the supraspi natus muscle. No joint effusion. CT/CT shoulder LT wo con* [id number] IMPRESSION: 1. Moderate narrowing glenohumeral joint with osteophytic ridging contributing to joint space narrowing. 2. No fracture. 3. Mild atrophy supraspinatus muscle. 4. Very mild AC joint arthritis.
== END 2022-03-13 10:04 | disposition home or self-care (01) ==
LOC: RAD 10:04
PROVIDERS: PCP Family Medicine; Visit Provider Orthopaedic Surgery
DX: M19.012 Primary osteoarthritis, left shoulder (principal)
CPT/HCPCS: 73200

== ENCOUNTER 2022-03-16 14:20 | Observation (INO) | payer MEDICARE, SELFPAY ==
[2022-03-11 10:49] VITALS: BMI 29.5
--- NOTE | 2022-03-11 10:53 | ECG_ITS ---
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 Measurements Intervals [place] Rate: 63 P: 53 LA: 232 QRS: -9 QRSD: 88 T: 13 QT: 410 QTc: 421 Interpretive Statements SINUS RHYTHM WITH FIRST DEGREE AV BLOCK LOW QRS VOLTAGE IN PRECORDIAL LEADS [QRS DEFLECTION < 1.0 mV IN CHEST LEADS] POSSIBLE ANTERIOR MYOCARDIAL INFARCTION , PROBABLY OLD [30 ms Q WAVE IN V3/V4, OR R < 0.2 mV IN V4] Compared to ECG 07/10/2020 13:59:55 Myocardial infarct finding now present Sinus bradycardia no longer present Electronically Signed On 03-11-2022 22:23:53 CDT by Inez Spann M.D. [id number]
[2022-03-11 11:26] LABS: Basophils % 0.7 %; Eosinophils # 0.1 10^3/uL (0.0-0.8); Eosinophils % 2.4 %; Hematocrit 43.6 % (42.0-52.0); Lymphocytes # 1.7 10^3/uL (0.8-4.8); Lymphocytes % 28.9 %; Mean Corpuscular HGB Conc 32.1 g/dL (30.0-36.0); Mean Corpuscular Volume 93.6 fl (80-94); Mean Platelet Volume 10.7 fL (7.4-10.4); Monocytes # 0.6 10^3/uL (0.2-0.9); Neutrophils # 3.36 10^3/uL (1.8-7.7); Neutrophils % 57.7 %; Nucleated Red Blood Cells % 0 %; Platelet Count 177 10^3/cmm (130-400); Red Blood Count 4.66 10^6/uL (4.1-5.3); Red Cell Distribution Width 13.3 % (12.1-15.1); White Blood Count 5.8 10^3/uL (4.0-10.0)
--- NOTE | 2022-03-11 11:39 | P.ANESASSM_ITS ---
Pre-Anesthetic Assessment Height/Weight: Height 1.83 m Weight 98.883 kg Preop Diagnosis: Cholelithiasis Operation Date: 03/16/22 12:20 Proposed Procedures p Left Total Shoulder Arthroplasty:24893,M19.012(Left) - Ryan Spencer MD Familial anesthetic complications: none Was Beta Silvio taken within 24 hours: Yes Was Clonidine taken within 24 hours: N/A Social No alcohol and No tobacco Exam alert, oriented x 3, clear to auscultation bilaterally and regular rate & rhythm Airway Submandibular: within normal limits Cervical ROM: within normal limits Mallampati: Class II Dentition: false (upper) CV/HEM Arrythmia, Coronary Artery Disease (stent) and Hypertension Metabolic Diabetes Mellitus Musc/skel Osteoarthritis/DJD Anesthetic Plan ASA status: 3 Anesthesia: General and Regional (specify below) (left interscalene nerve blk) Medications/Allergies Home Medications Medication Instructions Recorded Confirmed Last Taken Type lisinopril 10 mg tablet 10 mg PO DAILY 12/25/19 03/11/22 07/10/20 History aspirin 81 mg tablet,delayed 81 mg PO DAILY #90 tab 12/26/19 03/11/22 07/07/20 Rx release metformin 500 mg tablet 1,000 mg PO DAILY tab 01/02/20 03/11/22 07/09/20 History multivitamin 1 tab PO DAILY 04/01/20 03/11/22 07/09/20 History omega-3 fatty acids 1,000 mg 1,000 mg PO DAILY 04/01/20 03/11/22 07/09/20 History capsule (Fish Oil Concentrate) ticagrelor 90 mg tablet (Brilinta) 90 mg PO BID #180 tab 08/04/21 03/11/22 03/10/22 21:15 Rx nitroglycerin 0.4 mg sublingual 0.4 mg SUBLINGUAL Q5M PRN #30 tab 01/22/22 03/11/22 Unknown Rx tablet trazodone 50 mg tablet 50 mg PO DAILY PRN 01/22/22 03/11/22 Unknown History isosorbide dinitrate 5 mg tablet 5 mg PO BID #180 tab 02/16/22 03/11/22 Unknown Rx atorvastatin 40 mg tablet 40 mg PO BEDTIME #90 tab 03/09/22 03/11/22 Unknown Rx metoprolol succinate 25 mg 25 mg PO DAILY #90 tab 03/11/22 03/11/22 Unknown Rx tablet,extended release 24 hr Allergies Allergy/AdvReac Type Severity Reaction Status Date / Time No Known Allergies Allergy Verified 03/11/22 10:46 [facility] Anesthesia Medical History CAD (coronary artery disease) Coronary artery disease Diabetes mellitus, type II Dyslipidemia HTN (hypertension) Surgical History H/O circumcision H/O heart artery stent H/O vasectomy with reversal History of tonsillectomy S/P cholecystectomy Status post laparoscopic cholecystectomy (07/10/20) Family History Mother Cancer Diabetes Hypertension Grandfather Cancer Hypertension Grandmother Cancer Hypertension Sister Hypertension Father Cancer Denies family history of CAD (coronary artery disease) Clotting disorder Dementia Hyperlipidemia Psychiatric illness Chronic kidney disease (CKD) Suicide Anesthesia complication Bleeding disorder Family history of premature coronary artery disease Lung disease Stroke Social History Smoking and tobacco status: never smoked Alcohol intake: current Alcohol intake frequency: holidays/special occasions only Alcohol type: beer Household members: spouse Marital status: Current occupational status: retired History of recent travel: No Data Anesthesia : 03/11/22 11:00 03/11/22 11:00 Short CBC 03/11/22 Range/Units 11:00 WBC 5.8 (4.0-10.0) 10^3/uL Hgb 14.0 (11.7-16.6) g/dL Hct 43.6 (42.0-52.0) % MCV 93.6 (80-94) fl Plt Count 177 (130-400) 10^3/cmm Neut % (Auto) 57.7 % Neut # (Auto) 3.36 (1.8-7.7) 10^3/uL Cardiac Studies: Echocardiogram Ultrasound 12/25/19 Sestamibi Stress Test (Cardiology) 12/25/19
[2022-03-11 11:53] LABS: Anion Gap 14.9 (5-19); Blood Urea Nitrogen 14 mg/dL (8-23); Calcium 8.7 mg/dL (8.5-10.5); Carbon Dioxide 24 mmol/L (22-29); Chloride 102 mmol/L (98-107); Creatinine Clr Calc Pharmacy 107.6415; Glomerular Filtration Rate 96.1 mL/min (90-130); Glucose 153 mg/dL (65-115); Osmolality Calculated 288 mOsm/kg (285-295); Potassium 3.9 mmol/L (3.5-5.1); Sodium 137 mmol/L (136-145)
[2022-03-16] VITALS (25 sets, daily range): BP systolic 102–131; BP diastolic 35–78; PULSE 52–68; RESP 8–18; TEMP 36.3–36.6; O2SAT 93–100; BMI 29.5
[2022-03-16 08:09] LABS: Glucose Point of Care 123 mg/dL (70-110)
[2022-03-16] MEDS: oxyCODONE 20 mg ER (12 HR) Tablet PO (08:09)
[2022-03-16] MEDS: CELEcoxib 200 mg Capsule 400 MG PO (08:09)
[2022-03-16] MEDS: acetaminophen 500 mg Tablet 1000 MG PO ×2 (08:09→15:12)
[2022-03-16] MEDS: gabapentin 300 mg Capsule PO ×2 (08:09→17:31)
[2022-03-16] MEDS: sodium chloride 0.9% 1,000 ML 30 ML IV (08:17)
--- NOTE | 2022-03-16 09:07 | P.ANESUD_ITS ---
Pre-Anesthetic Update Pre-Anesthetic Assessment: Date of Surgery/Procedure: 03/16/22 Preop Sandra gnosis: Osteoarthritis Left shoulder Proposed Procedure: Operation Date: 03/16/22 09:20 Proposed Procedures p Left Total Shoulder Arthroplasty:42549,M19.012(Left) - Ryan Spencer MD Any changes to Pre-Anesthetic Assessment?: No Changes from Pre-Anesthetic Assessment: We discussed risk and benefits of nerve block for post op pain control including management of pain and titration of pain medications as signs/symptoms of nerve block wearing off begin to appear and/or prior bed. We discussed risk of failed nerve block, vascular injury or other vital structure injury, PTx, post op O2 requirements, abscess/infection, LAST, and nerve injury. Patient would like to proceed with brachial plexus block. Last Intake: Intake Last Liquid Date 03/15/22 Last Liquid Time 23:00 Last Solid Date 03/15/22 Last Solid Time 19:30 Vitals: Temperature 97.5 F L 03/16/22 07:51 Temperature Source Temporal Artery S can 03/16/22 07:51 Pulse Rate 58 L 03/16/22 07:51 Respiratory Rate 15 03/16/22 08:09 Respiratory Effort 03/16/22 08:09 Respiratory Depth Normal 03/16/22 08:09 Respiratory Patter n 03/16/22 08:09 Blood Pressure 127/75 03/16/22 07:51 Blood Pressure Sallie n 92 03/16/22 07:51 Pulse Oximetry 96 03/16/22 08:09 Oxygen Delivery Me thod 03/16/22 07:51 Exam: Pre-Anes Outpt Exam: alert, oriented x 3, clear to auscultation bilaterally and regular rate & rhythm Cardiac Studies: Echocardiogram Ultrasound 12/25/19 Sestamibi Stress Test (Cardiology) 12/25/19
--- NOTE | 2022-03-16 09:55 | P.ANES_ITS ---
Anesthesia Procedures Procedure/Date: 03/16/22
--- NOTE | 2022-03-16 09:55 | ANES.PROC ---
Anesthesia Procedures Procedure/Date: 03/16/22
--- NOTE | 2022-03-16 09:59 | W.PM.OPSFHP ---
Same Day Surgery H&P Indication for Procedure/HPI DATE OF PROCEDURE: March 16, 2022 CHIEF COMPLAINT/INDICATIONFOR SURGICAL PROCEDURE: Osteoarthritis left shoulder, here for left total shoulder arthroplasty PREOP DIAGNOSIS: Osteoarthritis Left shoulder PLANNED PROCEDURE: Operation Date: 03/16/22 09:20 Proposed Procedures p Left Total Shoulder Arthroplasty:96218,M19.012(Left) - Ryan Spencer MD 66-year-old male with years of left shoulder pain much worse over the last 6 months. Has failed anti-inflammatories and corticosteroid injections. Here for elective left total shoulder arthroplasty Medications/Allergies* Home Medications Medication Instructions Recorded Confirmed Type lisinopril 10 mg tablet 10 mg PO DAILY 12/25/19 03/16/22 History metformin 500 mg tablet 1,000 mg PO DAILY tab 01/02/20 03/16/22 History multivitamin 1 tab PO DAILY 04/01/20 03/16/22 History omega-3 fatty acids 1,000 mg 1,000 mg PO DAILY 04/01/20 03/16/22 History capsule (Fish Oil Concentrate) trazodone 50 mg tablet 50 mg PO DAILY PRN 01/22/22 03/16/22 History Allergies/Adverse Reactions Allergy/AdvReac Type Severity Reaction Status Date / Time No Known Allergies Allergy Verified 03/11/22 10:46 Current Medications: Generic Name Dose Route Start Last Admin Trade Name Freq PRN Reason Stop Dose Admin Sodium Chloride 1,000 mls @ 30 mls/hr 03/16/22 07:45 03/16/22 08:17 Sodium Chloride 0.9% IV 03/17/22 07:44 30 mls/hr .Q24H [facility] Administration Pertinent History/Comorbid Conditions* Medical History (Updated 02/18/22 @ 10:35 by Ryan Spencer MD) CAD (coronary artery disease) Coronary artery disease Diabetes mellitus, type II Dyslipidemia HTN (hypertension) Surgical History (Updated 01/24/22 @ 20:18 by Inez Spann MD) H/O circumcision H/O heart artery stent H/O vasectomy with reversal History of tonsillectomy S/P cholecystectomy Status post laparoscopic cholecystectomy (07/10/20) Family History (Updated 01/02/20 @ 11:35 by Aleisha Hassan RN) Diabetes Mother Cancer Mother Grandfather Grandmother Father Hypertension Mother Grandfather Grandmother Sister Denies family history of CAD (coronary artery disease) Clotting disorder Dementia Hyperlipidemia Psychiatric illness Chronic kidney disease (CKD) Suicide Anesthesia complication Bleeding disorder Family history of premature coronary artery disease Lung disease Stroke Social History Smoking and tobacco status: never smoked Alcohol intake: current Alcohol intake frequency: holidays/special occasions only Alcohol type: beer Household members: spouse Marital status: Current occupational status: retired History of recent travel: No Pertinent Exam Findings alert, oriented x 3, clear to auscultation bilaterally, regular rate & rhythm and operative site marked Recommendations Surgery/Procedure today Coding Level of Care Code Acute Ex Assistant/Program Director for Daisha Pimentel
[2022-03-16] MEDS: EPINEPHrine 1 mg/mL INJ XX (11:29)
[2022-03-16] MEDS: tobramycin 40 mg/mL SDV 2mL 160 MG IRRIGATION (11:30)
[2022-03-16] MEDS: sodium chloride 0.9% 1,000 ML 75 ML IV (12:36)
--- NOTE | 2022-03-16 13:06 | PM.OP ---
Operative Report Date of procedure: March 16, 2022 Pre-op diagnosis: Preop Diagnosis Osteoarthritis left shoulder Post-op diagnosis: same Procedure done: Left total shoulder arthroplasty Implants: Tornier total shoulder 1) Simpliciti size 2 nucleus 2) Simpliciti STB Humeral Head 52 mm, thickness 21 mm 3) Aequalis PerFORM cortiolc pegged glenoid 40 mm Pathology: none sent Surgeon: Ryan Spencer Anesthesia: General and Nerve Block (Interscalene) Estimated blood loss: 250 Complications: None Findings: The patient had sclerosis and narrowing of the humeral head and glenoid. Preoperative templating revealed increased superior wear peripheral glenoid osteophytes predominantly anteriorly. Condition: stable Disposition: PACU Procedure: Patient was given a interscalene block in holding. The patient was taken to the operating room and was given 2 g of Ancef. He is prepped and draped in the beachchair position with his arm supported on a Grant stand. A timeout was performed. A 10cm incision was made just lateral to the coracoid extending distally in line with the medial deltoid border. Dissection was carried out identifying the cephalic vein in the deltopectoral interval. Dissection was accomplished manually through the interval and subacromial and lateral deltoid adhesions released by hand. A Gabriel soft tissue protector was placed. The biceps tendon was identified distally and traced proximally through the bicipital groove. The subscapularis and underlying capsule were then peeled off of the lesser tuberosity. The free tendon was fixed with braided sutures in a locking fashion and the free ends secured with a hemostat. The rotator interval was then split. The shoulder then could be dislocated out of the wound. In accordance with our preoperative plan a femoral head cut was made at the level of the capsular insertions with retractors to protect the rotator cuff. A central pin was placed and the proximal humerus prepared for the size nucleus and covered with the humeral protector plate. Retractors were then placed around the glenoid with the humeral head being retracted posteriorly and inferiorly. Release of the capsule was accomplished beginning anteriorly and working posteriorly around the humeral head. In accordance with the plan the central guidepin was placed. The pin was placed with approximately 10 degrees of downward tilt to correct superior tilt of the glenoid. Osteophytes were removed anteriorly were artificially adding to glenoid retroversion. The glenoid was planed down to subchondral bone removing. The central peg hole and peripheral holes were then placed. The glenoid was irrigated removing cartilaginous remnants. Peripheral peg holes were dried with a Ray-Johnathan and prepared with an epinephrine solution. Simplex P antibiotic cement was packed in each pedicle and the final glenoid component placed. Trial reduction was accomplished before settling on the mm mm thickness glenoid. The final humeral head was placed in the shoulder reduced. 4 drill holes were then made beginning in the bicipital groove posteriorly into the greater tuberosity. Sutures from the subscapularis were passed through these holes and the sutures were secured over a 4-hole mini plate over the greater tuberosity with excellent purchase. The rotator interval was closed laterally with a braided nylon suture. The shoulder was irrigated with saline. The deltopectoral interval was closed with interrupted 0 Vicryl suture. Subcutaneous tissues were closed with running 2-0 Stratafix. Skin edges closed with a running 4-0 Stratafix. The skin was covered with a Prineo skin glue and covered with OpSite. The patient was placed in a sling, extubated, and taken recovery room in stable condition.
--- NOTE | 2022-03-16 13:18 | SUR.PHASEI ---
patient brought into pacu. pt has LMA in place, simple mask over it with sats at 99%. Left arm in sling, dressing to left shoulder dry and intact. fingers to left hand are warm and pink. patient asleep.
--- NOTE | 2022-03-16 13:25 | SUR.PHASEI ---
first ice applied to left shoulder
--- NOTE | 2022-03-16 13:32 | XR_ITS ---
WS: [id number] SHOULDER LEFT TECHNIQUE: 2 views of the left shoulder CLINICAL INFORMATION: Status post left total shoulder COMPARISON: February 18, 2022 FINDINGS: Postoperative changes are new compared to previous with LEFT humeral head prosthesis. Resurfacing inv olving the glenoid with bony anchor. Normal anatomic alignment. XR/XR shoulder LT min 2V* [id number] IMPRESSION: Normal postoperative LEFT TSA.
--- NOTE | 2022-03-16 13:40 | SUR.PHASEI ---
LMA removed, patient still on simple mask at 8L with sats at 100%.
--- NOTE | 2022-03-16 13:43 | SUR.PHASEI ---
patient wakes to name. states no pain at this time. no pain per faces.
--- NOTE | 2022-03-16 13:45 | SUR.PHASEI ---
patient on room air. sats remain at 100%. xray at bedside .
--- NOTE | 2022-03-16 13:51 | ANES.PROC ---
Anesthesia Procedures Procedure/Date: 03/16/22 Nerve Block ^: Nerve Block 1: Main Anesthesia: general anesthesia Time Out Performed: Yes Consent: requested by attending/covering physician, from patient, risks and benefits reviewed and patient agrees to proceed Nerve block location: interscalene Anesthesia monitors applied: pulse oximetry, EKG, BP cuff and oxygen Nerve block position: semi sitting Anesthetic Used: ropivicaine 0.5% Amount of anesthesia used (mL): 15 Ultrasound used to: recognize landmarks and visualize and ID interscalene groove Nerve Stimulator Used?: Yes (Motor response lost < 0.4 mA) Interscalene/Femoral BLK: 2 stimuplex 22 g needle used for position and inplane approach Injection: neg aspiration of heme Patient Tolerated Procedure: well and no complications Complications: none Additional Comments: After time out sterile prep, using sterile technique, and using real time US guidance for target selection needle was inserted with real time visualization of needle entry and real time visualization of needle advancement toward intended target. Negative aspiration. LA injected incrementally with negative aspiration every 5 cc and real time US visualization of LA spread throughout procedure. Tolerated well. Image(s) saved.
--- NOTE | 2022-03-16 13:57 | SUR.PHASEI ---
report called to vipin siu rn.
--- NOTE | 2022-03-16 14:19 | SUR.PHASEI ---
patient taken to ob12. nurse aurelia in room on arrival. pt awake and alert, states no pain in left shoulder, some sensation to left fingers. left fingers warm and pink. dressing to left shoulder dry and intact no drainage noted. pt notified and shown to patients room.
[2022-03-16] MEDS: oxyCODONE 5 mg IR Tab/Cap PO (15:12)
--- NOTE | 2022-03-16 15:42 | ANE.PACU2 ---
Inpatient post-anesthesia follow up: Airway intact: Yes Vital signs: Temperature 97.3 F Pulse Rate 62 Respiratory Rate 16 Blood Pressure 131/68 Pulse Oximetry 97 Oxygen Delivery Me thod Room Air Oxygen Flow Rate 8 Fraction of Inspir ed Oxygen Hydration adequate: Yes Nausea and vomiting: No Pain level: 2 Mental status: Baseline
[2022-03-16] MEDS: ticagrelor 90 mg Tablet PO (17:32)
[2022-03-16] MEDS: isosorbide dinitrate 20 mg Tablet 5 MG PO (17:33)
[2022-03-16 17:56] LABS: Glucose Point of Care 124 mg/dL (70-110)
[2022-03-16] MEDS: atorvastatin 40 mg Tablet PO (21:24)
[2022-03-16] MEDS: CELEcoxib 200 mg Capsule PO (21:24)
[2022-03-16] MEDS: insulin lispro 100 unit/1 mL SUBCUT (22:02)
[2022-03-16 22:25] LABS: Glucose Point of Care 148 mg/dL (70-110)
[2022-03-17] VITALS (8 sets, daily range): BP systolic 98–126; BP diastolic 61–77; PULSE 56–84; RESP 14–18; TEMP 36.4–36.8; O2SAT 96
[2022-03-17] MEDS: acetaminophen 500 mg Tablet 1000 MG PO ×3 (00:30→14:07)
[2022-03-17] MEDS: oxyCODONE 5 mg IR Tab/Cap PO ×3 (01:10→14:07)
[2022-03-17] MEDS: sodium chloride 0.9% 1,000 ML 125 ML IV (02:30)
[2022-03-17] MEDS: CELEcoxib 200 mg Capsule PO (07:45)
[2022-03-17] MEDS: lisinopril 10 mg Tablet PO (07:46)
[2022-03-17] MEDS: isosorbide dinitrate 20 mg Tablet 5 MG PO (07:46)
[2022-03-17] MEDS: ticagrelor 90 mg Tablet PO (07:47)
[2022-03-17] MEDS: metoprolol succinate ER (24 HR) 25 mg Tablet PO (07:47)
[2022-03-17] MEDS: aspirin 81 mg EC Tablet PO (07:53)
[2022-03-17] MEDS: gabapentin 300 mg Capsule PO (07:53)
--- NOTE | 2022-03-17 10:31 | P.DS_ITS ---
Discharge Providers Date of Admission: 03/16/22 14:20 Date of Discharge: March 17, 2022 Attending Provider at Admission: Ryan Ramey MD Attending Provider at Discharge: Ryan Ramey MD Primary Care Provider: Kevan Sy Diagnoses at Discharge Discharge Diagnosis (1) Status post replacement of left shoulder joint: Status: Acute (2) Osteoarthritis of left shoulder: Status: Resolved Reason for Visit Reason for Visit: Brief History: Tomas is a 66-year-old male with progressive pain and loss of use of his left shoulder. He was admitted for elective left total shoulder arthroplasty Hospital Course Hospital Course The patient tolerated surgery well. They remained hemodynamically stable. They was begun on aspirin and sequential compression dressing for DVT prophylaxis. The patient was mobilized with occupational therapy beginning the day of surgery and by the first postoperative day independent with a home exercise program. As the pain was adequately controlled and they were fully mobile they were discharged home. Physical Exam Narrative: On the day of discharge the patient's dressing was clean and dry. The patient's would fire his deltoid and his biceps. No distal neurovascular deficits were noted. Urinary Catheter Management: Lobo Latex: Cath Placed During This Visit: yes, but has since been removed by the nurse Reason for Continuing Indwelling Catheter: Other Urinary Catheter Date of Insertion: 03/17/22 Urinary Catheter Time of Insertion: 02:18 Date Urinary Catheter Removed: 03/17/22 Time Urinary Catheter Discontinued: 09:40 Discharge Data Studies Completed and Pending Completed Studies During Hospitalization Category Date Time Status XR shoulder LT min 2V* [id number] Routine Exams 03/16/22 13:32 Completed Radiology Impressions Shoulder X-Ray 03/16/22 13:32 IMPRESSION: Normal postoperative LEFT TSA. Laboratory Results WBC 5.8 10^3/uL (4.0-10.0) 03/11/22 11:00 RBC 4.66 10^6/uL (4.1-5.3) 03/11/22 11:00 Hgb 14.0 g/dL (11.7-16.6) 03/11/22 11:00 Hct 43.6 % (42.0-52.0) 03/11/22 11:00 MCV 93.6 fl (80-94) 03/11/22 11:00 MCH 30.0 pg (28.0-34.0) 03/11/22 11:00 MCHC 32.1 g/dL (30.0-36.0) 03/11/22 11:00 RDW 13.3 % (12.1-15.1) 03/11/22 11:00 Plt Count 177 10^3/cmm (130-400) 03/11/22 11:00 MPV 10.7 fL (7.4-10.4) H 03/11/22 11:00 Neut % (Auto) 57.7 % 03/11/22 11:00 Lymph % (Auto) 28.9 % 03/11/22 11:00 [place] % (Auto) 10.0 % 03/11/22 11:00 Eos % (Auto) 2.4 % 03/11/22 11:00 Baso % (Auto) 0.7 % 03/11/22 11:00 Neut # (Auto) 3.36 10^3/uL (1.8-7.7) 03/11/22 11:00 Lymph # (Auto) 1.7 10^3/uL (0.8-4.8) 03/11/22 11:00 [place] # (Auto) 0.6 10^3/uL (0.2-0.9) 03/11/22 11:00 Eos # (Auto) 0.1 10^3/uL (0.0-0.8) 03/11/22 11:00 Baso # (Auto) 0.0 10^3/uL (0.0-0.1) 03/11/22 11:00 Nucleated RBC % (auto) 0 % 03/11/22 11:00 Nucleated RBCs # 0.0 /100WBC 03/11/22 11:00 Sodium 137 mmol/L (136-145) 03/11/22 11:00 Potassium 3.9 mmol/L (3.5-5.1) 03/11/22 11:00 Chloride 102 mmol/L (98-107) 03/11/22 11:00 Carbon Dioxide 24 mmol/L (22-29) 03/11/22 11:00 Anion Gap 14.9 (5-19) 03/11/22 11:00 BUN 14 mg/dL (8-23) 03/11/22 11:00 Creatinine 0.8 mg/dL (0.7-1.2) 03/11/22 11:00 GFR Calculation 96.1 mL/min (90-130) 03/11/22 11:00 Glucose 153 mg/dL (65-115) H 03/11/22 11:00 POC Glucose 148 mg/dL (70-110) H 03/16/22 21:46 Calculated Osmolality 288 mOsm/kg (285-295) 03/11/22 11:00 Calcium 8.7 mg/dL (8.5-10.5) 03/11/22 11:00 Vitals Last Vital Signs Temp 97.5 F L 03/17/22 05:57 Pulse 59 L 03/17/22 05:57 Resp 18 03/17/22 07:45 BP 107/68 03/17/22 05:57 Pulse Ox 96 03/17/22 05:57 Discharge Plan Discharge Patient Disposition: Home Condition: Stable Prescriptions: New celecoxib 200 mg Capsule 200 mg PO Q12H 14 Days Qty: 28 0RF acetaminophen 500 mg Tablet 1,000 mg PO Q8H 14 Days Qty: 84 0RF gabapentin 300 mg Capsule 300 mg PO BID 7 Days Qty: 14 0RF oxycodone 5 mg Tablet 5 mg PO Q4H PRN (Reason: Moderate Pain) 7 Days Qty: 40 0RF Continued omega-3 fatty acids [Fish Oil Concentrate] 1,000 mg capsule 1,000 mg PO DAILY 0RF multivitamin Tablet 1 tab PO DAILY 0RF trazodone 50 mg tablet 50 mg PO DAILY PRN (Reason: Sleep) 0RF nitroglycerin 0.4 mg tablet, sublingual 0.4 mg sublingual Q5M PRN (Reason: chest pain) Qty: 30 2RF Rx Instructions: do not exceed 3 doses per episode Brilinta 90 mg tablet 90 mg PO BID Qty: 180 3RF Hold Instructions: Resume on 07/11/20. isosorbide dinitrate 5 mg tablet 5 mg PO BID Qty: 180 1RF Rx Instructions: allow nitrate-free interval of 12-14 hrs per 24-hr period atorvastatin 40 mg tablet 40 mg PO BEDTIME Qty: 90 3RF metoprolol succinate 25 mg tablet extended release 24 hr 25 mg PO DAILY Qty: 90 1RF lisinopril 10 mg Tablet 10 mg PO DAILY 0RF aspirin 81 mg Tablet,Delayed Release (Dr/Ec) 81 mg PO DAILY Qty: 90 4RF metformin 500 mg tablet 1,000 mg PO DAILY 0RF Discharge Orders: Discharge Order (Routine); Ordered 03/17/22 Ordered By: Ryan Ramey Referrals: [facility] ([facility]) [Outside] Vidal Stanton FNP [Physician Culinary Instructor] - 03/20/22 8:30 am Discharge Diet: Advance as tolerated Discharge Activity: Limit activity as instructed Patient Instructions: Joint Replacement Surgery (GEN), Opioid Safety, Post Anesthesia Care Activity Restrictions/Additional Instructions: Okay to shower. No soaking incision in tub Apply FirstIce up to 20 min/hr for pain and swelling Take Celebrex twice a day for the next 15 days for pain , discontinue other anti-inflammatories Take Tylenol 500mg (up to 2 tabs) 3 times a day for mild pain take oxycodone for breakthrough pain. Exercises per Occupational Therapy IF HAVE ANY PROBLEMS OR QUESTIONS CALL HOSPITAL PROGRAM COORDINATOR FOR [facility] AT AND ASK TO HAVE DR. RAMEY PAGED. Discharge Attestations Time Spent in Discharge Care*: other Quality Metrics Clinical Quality Measures [ No reported AMI, CVA or VTE this stay] Coding Level of Care Code Acute [facility] DC note Diagnoses Status post replacement of left shoulder joint Z96.612 Osteoarthritis of left shoulder M19.012
--- NOTE | 2022-03-17 15:31 | PC.NURSE ---
PATIENT ABLE TO VOID 75 MLS AROUND 1500 AND THEN SCANNED BLADDER AND IT WAS 350. PT STATES THAT HE DOES NOT FEEL LIKE HE IS FULL OR EVEN NEEDING TO GO PEE. BUT BOTH TIMES HE TRIED HE SAID THAT IT BURNED AND 1ST TIME HE HAD A LITTLE BLOOD, TOLD THEM THAT IT COULD JUST BE IRRIGATED FROM HAVING THE [place].
== END 2022-03-17 16:00 | disposition home or self-care (01) ==
LOC: OBGYN 14:39
PROVIDERS: Anesthesiology; Admitting Provider Orthopaedic Surgery; PCP Family Medicine; Visit Provider Orthopaedic Surgery
PROC: (CPT 23472; principal; 2022-03-16 09:20)
DX: M19.012 Primary osteoarthritis, left shoulder (principal); I25.10 Atherosclerotic heart disease of native coronary artery without angina pectoris; E11.9 Type 2 diabetes mellitus without complications; E78.5 Hyperlipidemia, unspecified; I10 Essential (primary) hypertension; Z95.5 Presence of coronary angioplasty implant and graft; Z79.82 Long term (current) use of aspirin
CPT/HCPCS: 23472; 36415; 36416; 51702; 51798; 73030; 80048; 82962; 85025; 93005; 96372; 97165; C1776; G0378; J0171; J1100; J1815; J2370; J2405; J2704; J2795; J3010; J3260; J3490; J7030

== ENCOUNTER → 2022-03-20 08:09 | Outpatient (BNVA) | payer MEDICARE, SELFPAY | PROVIDERS: PCP Family Medicine; Visit Provider Nurse Practitioner Family | DX: Z96.612 Presence of left artificial shoulder joint (principal) | CPT/HCPCS: 99024 ==

== ENCOUNTER → 2022-04-03 08:16 | Outpatient (BNVA) | payer MEDICARE, SELFPAY | PROVIDERS: PCP Family Medicine; Visit Provider Nurse Practitioner Family | DX: Z96.612 Presence of left artificial shoulder joint (principal) | CPT/HCPCS: 73030; 99024 ==

== ENCOUNTER → 2022-04-23 14:25 | Outpatient (BNVA) | payer MEDICARE, SELFPAY | PROVIDERS: PCP Family Medicine; Visit Provider Internal Medicine Cardiovascular Disease | DX: R07.9 Chest pain, unspecified (principal); I25.10 Atherosclerotic heart disease of native coronary artery without angina pectoris; I10 Essential (primary) hypertension; Z95.5 Presence of coronary angioplasty implant and graft | CPT/HCPCS: 99214 ==

== ENCOUNTER 2022-05-01 12:09 | Outpatient (RCR) | payer MEDICARE, SELFPAY | END 2022-05-27 23:59 | disposition home or self-care (01) | LOC: SPT 12:09 | PROVIDERS: PCP Family Medicine; Referring Provider Orthopaedic Surgery; Visit Provider Orthopaedic Surgery | DX: Z96.612 Presence of left artificial shoulder joint (principal) | CPT/HCPCS: 73030; 97110; 97140; 97161; 99024; 99213 ==

== ENCOUNTER → 2022-05-20 10:24 | Outpatient (BNVA) | payer MEDICARE, SELFPAY | PROVIDERS: PCP Family Medicine; Visit Provider Orthopaedic Surgery | DX: Z96.612 Presence of left artificial shoulder joint (principal) | CPT/HCPCS: 73030; 99212 ==

== ENCOUNTER 2022-05-28 06:00 | Outpatient (RCR) | payer MEDICARE, SELFPAY | END 2022-06-26 23:59 | disposition home or self-care (01) | LOC: SPT 06:00 | PROVIDERS: PCP Family Medicine; Visit Provider Orthopaedic Surgery | DX: Z96.612 Presence of left artificial shoulder joint (principal) | CPT/HCPCS: 97110; 97140 ==

== ENCOUNTER → 2022-06-12 08:20 | Outpatient (BNVA) | payer MEDICARE, SELFPAY | PROVIDERS: PCP Family Medicine; Visit Provider Nurse Practitioner Family | DX: Z96.612 Presence of left artificial shoulder joint (principal); S46.912A Strain of unspecified muscle, fascia and tendon at shoulder and upper arm level, left arm, initial encounter; X58.XXXA Exposure to other specified factors, initial encounter | CPT/HCPCS: 73030; 99213 ==

== ENCOUNTER 2022-06-27 06:00 | Outpatient (RCR) | payer MEDICARE, SELFPAY | END 2022-07-27 23:59 | disposition home or self-care (01) | LOC: SPT 06:00 | PROVIDERS: PCP Family Medicine; Visit Provider Orthopaedic Surgery | DX: Z96.612 Presence of left artificial shoulder joint (principal); Z47.89 Encounter for other orthopedic aftercare | CPT/HCPCS: 97110; 97140 ==

== ENCOUNTER 2022-07-28 06:00 | Outpatient (RCR) | payer MEDICARE, SELFPAY | END 2022-08-26 23:59 | disposition home or self-care (01) | LOC: SPT 06:00 | PROVIDERS: PCP Family Medicine; Visit Provider Orthopaedic Surgery | DX: Z96.612 Presence of left artificial shoulder joint (principal) | CPT/HCPCS: 97110; 97140 ==

== ENCOUNTER 2022-08-27 06:00 | Outpatient (RCR) | payer MEDICARE, SELFPAY | END 2022-09-14 16:07 | disposition home or self-care (01) | LOC: SPT 06:00 | PROVIDERS: PCP Family Medicine; Visit Provider Orthopaedic Surgery | DX: Z96.612 Presence of left artificial shoulder joint (principal) | CPT/HCPCS: 97110; 97140 ==

== ENCOUNTER → 2022-09-02 11:12 | Outpatient (BNVA) | payer MEDICARE, SELFPAY | PROVIDERS: PCP Family Medicine; Visit Provider Orthopaedic Surgery | DX: Z96.612 Presence of left artificial shoulder joint (principal) | CPT/HCPCS: 73030; 85651; 86140; 99213 ==

== ENCOUNTER 2022-10-02 09:55 | Outpatient (CLI) | payer MEDICARE, SELFPAY ==
--- NOTE | 2022-10-02 10:30 | CTR_ITS ---
PROCEDURE INFORMATION: Exam: CT Left Upper Extremity Without Contrast, Shoulder Exam date and time: 10/02/2022 10:27 AM Age: 66 years old Clinical indication: Prior surgery; Surgery date: 6+ months; Surgery type: Left total shoulder arthroplasty. Tornier total shoulder; Patient HX: History--shoulder surg 4 months ago, physical therapy, pain worsening since; Additional info: Shoulder pain TECHNIQUE: Imaging protocol: Computed tomography of the Left upper extremity without contrast. Exam focused on the shoulder. Radiation optimization: All CT scans at this facility use at least one of these dose optimization techniques: automated exposure control; mA and/or kV adjustment per patient size (includes targeted exams where dose is matched to clinical indication); or iterative reconstruction. COMPARISON: CT shoulder LT wo con* [id number] 03/13/2022 10:07 AM RADIATION DOSE METRICS: Total DLP (mGy-cm): 387.02 FINDINGS: Bones/joints: Status post left shoulder replacement. There is no evidence for fracture or loosening of the prosthesis. Soft tissues: Normal. CT/CT shoulder LT wo con* [id number] IMPRESSION: Status post left shoulder replacement. There is no evidence for fracture or loosening of the prosthesis.
== END 2022-10-02 09:56 | disposition home or self-care (01) ==
LOC: RAD 09:57
PROVIDERS: PCP Family Medicine; Visit Provider Orthopaedic Surgery
DX: Z96.612 Presence of left artificial shoulder joint (principal)
CPT/HCPCS: 73200

== ENCOUNTER → 2022-10-13 13:44 | Outpatient (BNVA) | payer MEDICARE, SELFPAY | PROVIDERS: PCP Family Medicine; Visit Provider Orthopaedic Surgery | DX: Z96.612 Presence of left artificial shoulder joint (principal) | CPT/HCPCS: 99213 ==

== ENCOUNTER 2022-11-05 09:44 | Day surgery (SDC) | payer MEDICARE, SELFPAY ==
[2022-11-05] VITALS (7 sets, daily range): BP systolic 101–135; BP diastolic 57–77; PULSE 60–76; RESP 15–18; TEMP 36.2–36.3; O2SAT 95–100
--- NOTE | 2022-11-05 10:14 | ECG_ITS ---
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 Measurements Intervals [place]agle Rate: 57 P: 72 AL: 228 QRS: 30 QRSD: 93 T: 56 QT: 417 QTc: 408 Interpretive Statements SINUS BRADYCARDIA WITH FIRST DEGREE AV BLOCK Compared to ECG 03/11/2022 11:01:18 Sinus rhythm no longer present Myocardial infarct finding no longer present Electronically Signed On 11-06-2022 8:14:02 MAMMOGRAPHY TECHNICIAN by Inez Spann M.D. [email or web address] Technologiesjefferson davis community hospitalKey Cybersecurityuniversity hospitals portage medical centerHangzhou [employer]/store/OM/[id number]
[2022-11-05] MEDS: acetaminophen 500 mg Tablet 1000 MG PO (10:43)
[2022-11-05] MEDS: sodium chloride 0.9% 1,000 ML 30 ML IV (10:44)
--- NOTE | 2022-11-05 10:44 | ANES.PREANE2 ---
Pre-Anesthetic Assessment Height/Weight: Height 1.83 m Weight 102.058 kg O2 Del Method 11/05/22 10:30 Preop Diagnosis: Painful left total shoulder arthroplasty Operation Date: 11/05/22 11:35 Proposed Procedures p open exploration of left shoulder joint to release adhesions:77369,Z96.612POSS CONVERSION REVERSE TOTAL SHOULDER(Left) - Ryan Spencer MD Familial anesthetic complications: none Was Beta Silvio taken within 24 hours: Yes Was Clonidine taken within 24 hours: N/A Last intake: Intake Last Liquid Date 11/04/22 Last Liquid Time 20:30 Last Solid Date 11/04/22 Last Solid Time 07:25 Social No alcohol and No tobacco Exam alert, oriented x 3, clear to auscultation bilaterally and regular rate & rhythm Airway Mallampati: Class III Dentition: false CV/HEM Arrythmia (V tach) and Coronary Artery Disease (Stents) 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 Indication for ? angiogram/PCI: ? Patient ? for worsening of angina ? underwent stress test today ? . ? On the treadmill patient was noted to ? have ventricular tachycardia ? along with chest pain for which test was stopped immediately.? He was taken to the [facility] ? he was found to have significant 95% proximal LAD stenosis treated with drug-eluting stent. Recommendations ? 1-Return to inpatient for close monitoring and routine cath care 2-Risk factor modification for secondary prevention 3-Statin and aspirin 81 mg life--long, if tolerated 4-Patient was pre-loaded with 600 mg of Plavix, continue Plavix 75mg p.o. daily for at least one year. We will assess at the end of one year again to continue if further or not 5-Continue optimal medical management 6-Follow up with Dr. Mtz in four weeks and your primary care in 10 days Echo 2019 CONCLUSIONS ?1-Normal left ventricular cavity size. Normal left ventricular ?systolic function. No regional wall motion abnormalities. Left ?ventricular ejection fraction is estimated at 57 %. No regional ?wall motion abnormalities. Grade I/IV diastolic dysfunction ?(abnormal relaxation filling pattern), normal to mildly elevated ?filling pressures. ?2-No significant chamber abnormalities. ?3-There is no pericardial effusion. ?4-No significant valve abnormalities. ?5-Pulmonary artery systolic pressure is within normal limits. ?6-Right atrial pressure is around 5 mm of mercury. ?7-There are no prior echocardiogram studies to compare. perfusion scan 2019 IMPRESSIONS ?Please note that this is a baseline rest images as patient due to ventricular ?tachycardia was taken to the [facility].? There is basal to mid anterior wall ?perfusion defect suggestive of lesion in the LAD Stress test 2019 CONCLUSION: 1. Exercise capacity fair. 2. Heart rate response was appropriate. 3. Blood pressure response was appropriate. 4. Symptoms suggestive of ischemia. 5. Electrocardiogram portion of the stress test was strongly suggestive of ischemia. 6.? Nuclear scan will not be performed as patient has strongly positive EKG portion of stress test.? We are planning to take patient to [facility] immediately. Metabolic Diabetes Mellitus (pre DM) and Hyperlipidemia Anesthetic Plan ASA status: 3 Anesthesia: General and Regional (specify below) Risk of > 500 ml blood loss (7ml/kg in children): No Medications/Allergies Home Medications Medication Instructions Recorded Confirmed Last Taken Type lisinopril 10 mg tablet 10 mg PO DAILY 12/25/19 11/04/22 11/04/22 History aspirin 81 mg tablet,delayed 81 mg PO DAILY #90 tabs 12/26/19 11/04/22 10/30/22 Rx release metformin 500 mg tablet 1,000 mg PO DAILY 01/02/20 11/04/22 11/04/22 History multivitamin 1 tab PO DAILY 04/01/20 11/04/22 10/31/22 History omega-3 fatty acids 1,000 mg 1,000 mg PO DAILY 04/01/20 11/04/22 10/30/22 History capsule (Fish Oil Concentrate) nitroglycerin 0.4 mg sublingual 0.4 mg sublingual Q5M PRN chest 01/22/22 11/04/22 Unknown Rx tablet pain #30 tabs atorvastatin 40 mg tablet 40 mg PO BEDTIME #90 tabs 03/09/22 11/04/22 11/04/22 Rx ticagrelor 90 mg tablet (Brilinta) 90 mg PO BID #180 tabs 08/04/22 11/04/22 10/30/22 Rx isosorbide dinitrate 5 mg tablet 5 mg PO BID #180 tabs 08/19/22 11/04/22 11/04/22 Rx metoprolol succinate 25 mg 25 mg PO DAILY #90 tabs 09/04/22 11/04/22 11/05/22 Rx tablet,extended release 24 hr Allergies Allergy/AdvReac Type Severity Reaction Status Date / Time No Known Allergies Allergy Verified 10/13/22 14:38 [facility] Anesthesia Medical History CAD (coronary artery disease) Coronary artery disease Diabetes mellitus, type II Dyslipidemia HTN (hypertension) Surgical History H/O circumcision H/O heart artery stent H/O vasectomy with reversal History of tonsillectomy S/P cholecystectomy Status post laparoscopic cholecystectomy (07/10/20) Family History Mother Cancer Diabetes Hypertension Grandfather Cancer Hypertension Grandmother Cancer Hypertension Sister Hypertension Father Cancer Denies family history of CAD (coronary artery disease) Clotting disorder Dementia Hyperlipidemia Psychiatric illness Chronic kidney disease (CKD) Suicide Anesthesia complication Bleeding disorder Family history of premature coronary artery disease Lung disease Stroke Social History Smoking and tobacco status: never smoked Alcohol intake: current Alcohol intake frequency: holidays/special occasions only Alcohol type: beer Household members: spouse Marital status: Current occupational status: retired History of recent travel: No Data Anesthesia 11/05/22 10:37 11/05/22 10:37 Cardiac Studies: Echocardiogram Ultrasound 12/25/19 Sestamibi Stress Test (Cardiology) 12/25/19
[2022-11-05 10:48] LABS: Basophils # 0.1 10^3/uL (0.0-0.1); Basophils % 0.8 %; Eosinophils # 0.1 10^3/uL (0.0-0.8); Eosinophils % 1.2 %; Hematocrit 46.1 % (42.0-52.0); Hemoglobin 15.1 g/dL (11.7-16.6); Lymphocytes # 3.1 10^3/uL (0.8-4.8); Lymphocytes % 41.2 %; Mean Corpuscular HGB Conc 32.8 g/dL (30.0-36.0); Mean Corpuscular Hemoglobin 30.4 pg (28.0-34.0); Mean Corpuscular Volume 92.8 fl (80-94); Mean Platelet Volume 10.3 fL (7.4-10.4); Monocytes # 0.8 10^3/uL (0.2-0.9); Monocytes % 10.1 %; Neutrophils # 3.55 10^3/uL (1.8-7.7); Neutrophils % 46.6 %; Nucleated Red Blood Cells % 0 %; Platelet Count 171 10^3/cmm (130-400); Red Blood Count 4.97 10^6/uL (4.1-5.3); Red Cell Distribution Width 13.4 % (12.1-15.1); White Blood Count 7.6 10^3/uL (4.0-10.0)
[2022-11-05 10:56] LABS: Glucose Point of Care 128 mg/dL (70-110)
[2022-11-05 11:06] LABS: Anion Gap 14.4 (5-19); Blood Urea Nitrogen 15 mg/dL (8-23); Calcium 10.1 mg/dL (8.5-10.5); Carbon Dioxide 28 mmol/L (22-29); Chloride 100 mmol/L (98-107); Glomerular Filtration Rate 96.1 mL/min (90-130); Glucose 118 mg/dL (65-115); Osmolality Calculated 288 mOsm/kg (285-295); Potassium 4.4 mmol/L (3.5-5.1); Sodium 138 mmol/L (136-145)
--- NOTE | 2022-11-05 11:15 | W.PM.OPSUD ---
Surgery/Procedure H&P Update DATE OF PROCEDURE: November 05, 2022 DATE H&P PERFORMED: 10/13/22 H&P UPDATE INFORMATION: I have reviewed H&P completed within last 30 days PREOP DIAGNOSIS: Painful left total shoulder arthroplasty PLANNED PROCEDURE: Operation Date: 11/05/22 11:35 Proposed Procedures p open exploration of left shoulder joint to release adhesions:58516,Z96.612POSS CONVERSION REVERSE TOTAL SHOULDER(Left) - Ryan Spencer MD
[2022-11-05] MEDS: ceFAZolin 2,000 MG in sodium chloride 0.9% (plus) 50 ML 100 MG IV (11:38)
[2022-11-05] MEDS: tranexamic acid 1,000 mg/10mL SDV 1000 MG IV (12:19)
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
--- NOTE | 2022-11-05 17:16 | ANE.PACU2 ---
Inpatient post-anesthesia follow up: Airway intact: Yes Vital signs: Temperature 97.3 F Pulse Rate 60 Respiratory Rate 18 Blood Pressure 101/57 Pulse Oximetry 96 Oxygen Delivery Me thod Room Air Oxygen Flow Rate 6 Fraction of Inspir ed Oxygen Hydration adequate: Yes Nausea and vomiting: No Pain level: 1 Mental status: Baseline
== END 2022-11-05 14:30 | disposition home or self-care (01) ==
PROVIDERS: Anesthesiology; PCP Family Medicine; Visit Provider Orthopaedic Surgery
PROC: (CPT 23000; principal; 2022-11-05 11:25)
DX: M75.02 Adhesive capsulitis of left shoulder (principal); I25.10 Atherosclerotic heart disease of native coronary artery without angina pectoris; Z95.5 Presence of coronary angioplasty implant and graft; E11.9 Type 2 diabetes mellitus without complications; E78.5 Hyperlipidemia, unspecified; Z79.82 Long term (current) use of aspirin; Z79.84 Long term (current) use of oral hypoglycemic drugs
CPT/HCPCS: 23000; 36415; 36416; 80048; 82962; 85025; 87070; 87075; 87205; 93005; J0330; J0690; J1100; J1580; J2405; J2704; J2710; J2795; J3010; J3490; J7030

== ENCOUNTER 2022-11-10 11:52 | Outpatient (RCR) | payer MEDICARE, SELFPAY | END 2022-11-24 23:59 | disposition home or self-care (01) | LOC: SPT 11:52 | PROVIDERS: PCP Family Medicine; Visit Provider Orthopaedic Surgery | DX: Z47.1 Aftercare following joint replacement surgery (principal); Z96.612 Presence of left artificial shoulder joint | CPT/HCPCS: 97110; 97161 ==

== ENCOUNTER → 2022-11-18 10:24 | Outpatient (BNVA) | payer MEDICARE, SELFPAY | PROVIDERS: PCP Family Medicine; Visit Provider Orthopaedic Surgery | DX: Z96.612 Presence of left artificial shoulder joint (principal) | CPT/HCPCS: 99024 ==

== ENCOUNTER 2022-11-25 06:00 | Outpatient (RCR) | payer MEDICARE, SELFPAY | END 2022-12-25 23:59 | disposition home or self-care (01) | LOC: SPT 06:00 | PROVIDERS: PCP Family Medicine; Visit Provider Orthopaedic Surgery | DX: Z47.1 Aftercare following joint replacement surgery (principal); Z96.612 Presence of left artificial shoulder joint | CPT/HCPCS: 97110 ==

== ENCOUNTER → 2022-12-16 10:53 | Outpatient (BNVA) | payer MEDICARE, SELFPAY | PROVIDERS: PCP Family Medicine; Visit Provider Orthopaedic Surgery | DX: Z96.612 Presence of left artificial shoulder joint (principal) | CPT/HCPCS: 73030; 99024 ==

== ENCOUNTER 2022-12-26 06:00 | Outpatient (RCR) | payer MEDICARE, SELFPAY | END 2023-01-24 23:59 | disposition home or self-care (01) | LOC: SPT 06:00 | PROVIDERS: PCP Family Medicine; Visit Provider Orthopaedic Surgery | DX: Z47.89 Encounter for other orthopedic aftercare (principal) | CPT/HCPCS: 97110 ==

== ENCOUNTER → 2023-01-13 09:52 | Outpatient (BNVA) | payer MEDICARE, SELFPAY | PROVIDERS: PCP Family Medicine; Visit Provider Orthopaedic Surgery | DX: Z96.612 Presence of left artificial shoulder joint (principal) | CPT/HCPCS: 99212 ==

== ENCOUNTER 2023-01-25 06:00 | Outpatient (RCR) | payer MEDICARE, SELFPAY | END 2023-02-24 23:59 | disposition home or self-care (01) | LOC: SPT 06:00 | PROVIDERS: PCP Family Medicine; Visit Provider Orthopaedic Surgery | DX: Z47.89 Encounter for other orthopedic aftercare (principal) | CPT/HCPCS: 97110 ==

== ENCOUNTER → 2023-02-24 10:09 | Outpatient (BNVA) | payer MEDICARE, SELFPAY | PROVIDERS: PCP Family Medicine; Visit Provider Orthopaedic Surgery | DX: Z96.612 Presence of left artificial shoulder joint (principal) | CPT/HCPCS: 99212 ==

== ENCOUNTER 2023-02-25 06:00 | Outpatient (RCR) | payer MEDICARE, SELFPAY | END 2023-03-26 23:59 | disposition home or self-care (01) | LOC: SPT 06:00 | PROVIDERS: PCP Family Medicine; Visit Provider Orthopaedic Surgery | DX: Z96.612 Presence of left artificial shoulder joint (principal) | CPT/HCPCS: 97110 ==

== ENCOUNTER → 2023-03-26 09:13 | Outpatient (BNVA) | payer MEDICARE, SELFPAY | PROVIDERS: PCP Family Medicine; Visit Provider Internal Medicine Cardiovascular Disease | DX: R07.9 Chest pain, unspecified (principal); I25.10 Atherosclerotic heart disease of native coronary artery without angina pectoris; I10 Essential (primary) hypertension | CPT/HCPCS: 99214 ==

== ENCOUNTER 2023-03-27 06:00 | Outpatient (RCR) | payer MEDICARE, SELFPAY | END 2023-04-26 23:59 | disposition home or self-care (01) | LOC: SPT 06:00 | PROVIDERS: PCP Family Medicine; Visit Provider Orthopaedic Surgery | DX: Z47.1 Aftercare following joint replacement surgery (principal); Z96.612 Presence of left artificial shoulder joint | CPT/HCPCS: 97110 ==

== ENCOUNTER → 2023-04-21 11:07 | Outpatient (BNVA) | payer MEDICARE, SELFPAY | PROVIDERS: PCP Family Medicine; Visit Provider Nurse Practitioner Family | DX: Z96.612 Presence of left artificial shoulder joint (principal) | CPT/HCPCS: 73030; 99213 ==

== ENCOUNTER 2023-04-29 06:08 | Outpatient (CLI) | payer MEDICARE, SELFPAY ==
--- NOTE | 2023-04-29 06:30 | CT_ITS ---
WS: [id number] CT LEFT SHOULDER, NONCONTRAST HISTORY: shoulder pain and weakness Technique: All CT scans at [facility] use at least one of these dose optimization techniques: automated exposure control; mA and/or kV adjustment per patient size (includes targeted exams where dose is matched to clinical indication); or iterative reconstruction. DLP: 665.45 mGy.cm COMPARISON: 10/02/2022 Status post LEFT shoulder reconstruction. Prosthetic component has replaced the humeral head. As comp ared to the most recent exam of 10/02/2022 there has been no change in alignment. Surface irregularity involving the glenoid with cystic changes and irregular cortex. There are a few small osseous fragmen ts in the axillary pouch which may be small bone fragments. Humeral head is high riding which may ind icate a rotator cuff tear. Due to the artifact it is difficult to evaluate for intact rotator cuff. The adjacent lung is clear. No rib abnormalities. CT/CT shoulder LT wo con* [id number] IMPRESSION: 1. Status post LEFT shoulder replacement. The prosthetic component is normally positioned and aligned similar to the study of 10/02/2022. 2. Glenoid degenerative changes with cortical irregularity and subchondral cys ts. 3. Tiny loose bodies in the expected location of the axillary pouch may be sma ll osseous fragments.
== END 2023-04-29 06:09 | disposition home or self-care (01) ==
PROVIDERS: PCP Family Medicine; Visit Provider Nurse Practitioner Family
DX: Z96.612 Presence of left artificial shoulder joint (principal)
CPT/HCPCS: 73200

== ENCOUNTER → 2023-05-11 08:01 | Outpatient (BNVA) | payer MEDICARE, SELFPAY | PROVIDERS: PCP Family Medicine; Visit Provider Nurse Practitioner Family | DX: Z09 Encounter for follow-up examination after completed treatment for conditions other than malignant neoplasm (principal); Z96.612 Presence of left artificial shoulder joint | CPT/HCPCS: 99213 ==

== ENCOUNTER → 2023-05-17 15:02 | Outpatient (BNVA) | payer MEDICARE, SELFPAY | PROVIDERS: PCP Family Medicine; Visit Provider Specialist | DX: Z96.612 Presence of left artificial shoulder joint; M75.102 Unspecified rotator cuff tear or rupture of left shoulder, not specified as traumatic; M12.812 Other specific arthropathies, not elsewhere classified, left shoulder | CPT/HCPCS: 73030; 99205 ==

== ENCOUNTER 2023-05-19 10:47 | Outpatient (RCR) | payer MEDICARE, SELFPAY | END 2023-05-27 23:59 | disposition home or self-care (01) | LOC: SPT 10:47 | PROVIDERS: PCP Family Medicine; Visit Provider Orthopaedic Surgery | DX: Z47.1 Aftercare following joint replacement surgery (principal); Z96.612 Presence of left artificial shoulder joint | CPT/HCPCS: 97110 ==

== ENCOUNTER 2023-05-24 08:24 | Outpatient (CLI) | payer MEDICARE, SELFPAY ==
--- NOTE | 2023-05-24 08:45 | NM_ITS ---
WS: [id number] THREE-PHASE BONE SCAN HISTORY: pain COMPARISON: LEFT shoulder radiograph 05/17/[address] 04/29/2023 Patient is is injected with 22.9 mCi Tc99m HDP intravenously. Immediate angiographic phase imaging is performed over the area of concern. Static blood pool imaging also performed. Two-hour whole-body sc intigrams performed in anterior and posterior projections. Additional large field of view imaging sub mitted as necessary. Normal angiographic and blood pool phase imaging centered over the shoulders. On the delayed imaging there is some increased uptake involving the LEFT glenoid and the humeral head. More focal uptake tyrel ng the medial humeral head adjacent to the glenoid. Degenerative changes were noted involving the gle noid and the humeral head on the recent CT. Small osseous fragments projecting toward the joint space along with an effusion. Mild AC joint arthritis on the RIGHT. No soft tissue abnormalities. IMPRESSION: 1. No evidence for osteomyelitis at the LEFT shoulder. 2. Moderate increased uptake at the LEFT glenohumeral joint. Cortical irregularity was noted on the r ecent CT along with lucency surrounding the glenoid screw which may indicate loosening.
== END 2023-05-24 08:25 | disposition home or self-care (01) ==
LOC: RAD 08:25
PROVIDERS: PCP Family Medicine; Visit Provider Nurse Practitioner Family
DX: S46.912A Strain of unspecified muscle, fascia and tendon at shoulder and upper arm level, left arm, initial encounter (principal); X58.XXXA Exposure to other specified factors, initial encounter; Z96.612 Presence of left artificial shoulder joint
CPT/HCPCS: 78315; A9561

== ENCOUNTER 2023-05-28 06:00 | Outpatient (RCR) | payer MEDICARE, SELFPAY | END 2023-06-26 23:59 | disposition home or self-care (01) | LOC: SPT 06:00 | PROVIDERS: PCP Family Medicine; Visit Provider Orthopaedic Surgery | DX: Z47.1 Aftercare following joint replacement surgery (principal); Z96.612 Presence of left artificial shoulder joint | CPT/HCPCS: 97110 ==

== ENCOUNTER 2023-06-27 06:00 | Outpatient (RCR) | payer MEDICARE, SELFPAY | END 2023-07-27 23:59 | disposition home or self-care (01) | LOC: SPT 06:00 | PROVIDERS: PCP Family Medicine; Visit Provider Orthopaedic Surgery | DX: Z47.1 Aftercare following joint replacement surgery (principal); Z96.612 Presence of left artificial shoulder joint | CPT/HCPCS: 97110 ==

== ENCOUNTER → 2024-05-02 13:24 | Outpatient (BNVA) | payer MEDICARE, SELFPAY | PROVIDERS: PCP Family Medicine; Visit Provider Internal Medicine Cardiovascular Disease | DX: I10 Essential (primary) hypertension (principal); I25.119 Atherosclerotic heart disease of native coronary artery with unspecified angina pectoris; E78.5 Hyperlipidemia, unspecified; E11.9 Type 2 diabetes mellitus without complications; Z79.84 Long term (current) use of oral hypoglycemic drugs | CPT/HCPCS: 99214 ==

== ENCOUNTER 2024-05-30 07:19 | Outpatient (CLI) | payer MEDICARE, SELFPAY ==
[2024-05-30 07:35] VITALS: BMI 31.8
--- NOTE | 2024-05-30 07:36 | NMCV_ITS ---
NM khadijah perf SPECT r/s* [id number] Tomas Vizcarra Age: 68 Gender: M : 1955 Exam Date: 05/30/2024 08:26 Ordering Phys: Brandt Crespo MD ([email or web address]) Technologist: WELLINGTON Bautista Exam Location: [facility] [address] Indications: CP, CAD STRESS TEST Please see separate stress test report in [facility] for full findings IMAGE PROTOCOL Rest/Stress 1 Exercise Day Radiopharmaceutical Dose (mCi) Administration Site Administered by Rest: Tc-99m 10.9 IV WELLINGTON Bautista Sestamibi Stress:Tc-99m 33.0 IV WELLINGTON Bautista Sestamibrooklynn Rest: 30-May-2024 60 Discovery 630 Stress: 30-May-2024 30 Discovery 630 Radiopharmaceutical was injected at 93 % maximum heart rate. Images obtained in supine and prone position. SPECT RESULTS Technical Quality: Excellent Raw Data Analysis: Normal Image Corrections: No attenuation or motion correction applied Summed Stress Score: 0 Summed Rest Score: 1 Summed Difference Score: 0 PERFUSION FINDINGS SPECT images demonstrate homogeneous tracer distribution throughout the myocardium. FUNCTIONAL RESULTS (calculated via Gated SPECT) Stress Image LV EF (%): 81 Stress EDV (mL):68 TID: 0.71 Stress ESV (mL):13 FUNCTIONAL FINDINGS: There is normal left ventricular systolic function. IMPRESSIONS 1. Normal myocardial perfusion imaging with no evidence of ischemia 2. LV systolic function is normal. Froy Bynum MD (Electronically Signed) Final Date: 30 May 2024 11:43 S
--- NOTE | 2024-05-30 07:36 | ECG_ITS ---
[facility] Test Date: 2024-05-30 Pat Name: Tomas Vizcarra Department: Room: Gender: Male Supervisor Coin Machine: Chirag Guerra : 1955 Requested By: Brandt Crespo Order Number: [id number] Mccormack MD: Froy Bynum M.D. Interpretive Statements NAME OF STUDY: EXERCISE SESTAMIBI STRESS TEST INDICATION: [CP/CAD, ] EXERCISE DATA: The patient was exercised by Coleman protocol. Baseline heart rate was 70 beats per minute. Baseline blood pressure was 151/78 millimeters of mercury. Maximal predicted heart rate was 150 beats per minute. Maximum heart rate achieved was 155, which was 103% of the maximum predicted heart rate. Maximum blood pressure was 198/71 millimeters of mercury. Total exercise time was 4 minutes and 14 seconds. Maximum METs achieved was 7. The reason for ending the test was maximal effort achieved. The patient complained of shortness of breath during the stress test, which then resolved at the end of the test. ELECTROCARDIOGRAM: BASELINE: Showed sinus rhythm, normal axis, no significant ST-T changes at the baseline noted. [] EXERCISE: At the peak exercise level, [] No significant ST-T changes suggestive of ischemia noted. Occasional PVCs were seen[] RECOVERY: During the recovery period, heart rate dropped appropriately. No significant ST-T changes in the recovery suggestive of ischemia noted. [] CONCLUSION: 1. Exercise capacity is fair 2. Heart rate response was appropirate 3. Blood pressure response was appropriate. 4. Symptoms not suggestive of ischemia. 5. Electrocardiogram portion of the stress test was not suggestive of ischemia. 6. Nuclear scan will be documented separately. Electronically Signed On 05-31-2024 11:55:58 CDT by Froy Bynum M.D. [id number]
[2024-05-30 09:25] VITALS: BP 168/74; PULSE 94
== END 2024-05-30 07:20 | disposition home or self-care (01) ==
LOC: CDL 07:20
PROVIDERS: PCP Family Medicine; Visit Provider Internal Medicine Cardiovascular Disease
DX: I20.0 Unstable angina (principal)
CPT/HCPCS: 36415; 78452; 93017; A9500

== ENCOUNTER → 2024-11-29 09:58 | Outpatient (BNVA) | payer MEDICARE, SELFPAY | PROVIDERS: PCP Family Medicine; Visit Provider Podiatrist Foot & Ankle Surgery | DX: M79.671 Pain in right foot (principal); M20.41 Other hammer toe(s) (acquired), right foot; M20.42 Other hammer toe(s) (acquired), left foot; M21.621 Bunionette of right foot; M21.622 Bunionette of left foot; M20.21 Hallux rigidus, right foot; M20.11 Hallux valgus (acquired), right foot; E11.9 Type 2 diabetes mellitus without complications; Z79.84 Long term (current) use of oral hypoglycemic drugs | CPT/HCPCS: 73630; 99204 ==

== ENCOUNTER → 2024-12-01 09:29 | Outpatient (BNVA) | payer MEDICARE, SELFPAY | PROVIDERS: PCP Family Medicine; Visit Provider Nurse Practitioner Family | DX: I25.119 Atherosclerotic heart disease of native coronary artery with unspecified angina pectoris (principal); I44.0 Atrioventricular block, first degree; R93.1 Abnormal findings on diagnostic imaging of heart and coronary circulation; I10 Essential (primary) hypertension; E78.5 Hyperlipidemia, unspecified | CPT/HCPCS: 93005; 99214 ==

== ENCOUNTER 2024-12-18 06:21 | Day surgery (SDC) | payer MEDICARE, SELFPAY ==
[2024-12-18] VITALS (9 sets, daily range): BP systolic 101–165; BP diastolic 57–82; PULSE 46–63; RESP 14–20; TEMP 36.1–36.6; O2SAT 97–100; BMI 31.8
[2024-12-18] MEDS: gabapentin 300 mg Capsule PO (07:08)
[2024-12-18] MEDS: CELEcoxib 200 mg Capsule 400 MG PO (07:08)
--- NOTE | 2024-12-18 07:11 | ANES.PREANE2 ---
Pre-Anesthetic Assessment Height/Weight: Height 6 ft Weight 235 lb Temp Pulse Resp BP Pulse Ox O2 Del Method 97.5 F L 63 17 165/82 98 Nasal Cannula 12/18/24 06:48 12/18/24 06:48 12/18/24 06:48 12/18/24 06:48 12/18/24 06:48 12/18/24 06:48 Preop Diagnosis: Right hallux rigidus and 2nd hammertoe Operation Date: 12/18/24 08:00 Proposed Procedures p first metatarsophalangeal joint arthrodesis(Right) - Vance Lovell DPM s second metatarsal Steve osteotomy(Right) - Vance Lovell DPM s second hammertoe repair proximal interphalangeal joint arthrodesis(Right) - Vance Lovell DPM s Tendon Transfer Foot Flexor Digitorum Longus To Extensor Digitorum Longus Tendon Transfer(Right) - Vance Lovell DPM Was Beta Silvio taken within 24 hours: Yes Was Clonidine taken within 24 hours: N/A Last intake: Intake Last Liquid Date 12/17/24 Last Liquid Time 17:30 Last Solid Date 12/17/24 Last Solid Time 17:30 Social No alcohol and No tobacco Exam alert, oriented x 3, clear to auscultation bilaterally and regular rate & rhythm Airway Submandibular: within normal limits Cervical ROM: within normal limits Mallampati: Class III Comments: Comments: No upper teeth, few missing teeth on the bottom. Denies any loose. Large hernandez Anesthetic Plan ASA status: 3 Anesthesia: MAC Other: No prior issues with anesthesia NPO since yesterday evening CAD history, follows with cardiology. Cardiac clearance received 1 stent placed in 2019. Off all blood thinners History of hypertension on lisinopril and metoprolol Type 2 diabetes, on metformin Labs reviewed acceptable for procedure Large hernandez, good mouth opening Plan for MAC anesthesia with local via surgeon Medications/Allergies Home Medications ?Medication ?Instructions ?Recorded ?Confirmed ?Last Taken ?Type lisinopril 10 mg tablet 10 mg PO DAILY 12/25/19 12/18/24 12/17/24 History aspirin 81 mg tablet,delayed 81 mg PO DAILY #90 tabs 12/26/19 12/13/24 12/13/24 Rx release metformin 500 mg tablet 1,000 mg PO DAILY 01/02/20 12/18/24 12/17/24 History multivitamin 1 tab PO DAILY 04/01/20 12/18/24 12/17/24 History omega-3 fatty acids 1,000 mg 1,000 mg PO DAILY 04/01/20 12/13/24 12/13/24 History capsule (Fish Oil Concentrate) atorvastatin 40 mg tablet 40 mg PO BEDTIME #90 tabs 03/27/24 12/18/24 12/17/24 Rx nitroglycerin 0.4 mg sublingual 0.4 mg sublingual Q5M PRN chest 05/02/24 12/13/24 Unknown Rx tablet pain #30 tabs metoprolol succinate 25 mg 25 mg PO DAILY #90 tabs 07/19/24 12/18/24 12/18/24 Rx tablet,extended release 24 hr isosorbide dinitrate 5 mg tablet See Rx Instructions .Route 09/29/24 12/18/24 12/18/24 Rx .COMPLEX #180 tabs Crutches #1 ea 11/29/24 12/01/24 Unknown Rx Knee Scooter #1 ea 11/29/24 12/01/24 Unknown Rx Allergies Allergy/AdvReac Type Severity Reaction Status Date / Time No Known Allergies Allergy Verified 12/01/24 09:11 [facility] Anesthesia Medical History Dyslipidemia CAD (coronary artery disease) Coronary artery disease HTN (hypertension) Diabetes mellitus, type II Surgical History S/P cholecystectomy Status post laparoscopic cholecystectomy (07/10/20) H/O circumcision H/O vasectomy with reversal History of tonsillectomy H/O heart artery stent Family History Mother Cancer Diabetes Hypertension Grandfather Cancer Hypertension Grandmother Cancer Hypertension Sister Hypertension Father Cancer Denies family history of CAD (coronary artery disease) Clotting disorder Dementia Hyperlipidemia Psychiatric illness Chronic kidney disease (CKD) Suicide Anesthesia complication Bleeding disorder Family history of premature coronary artery disease Lung disease Stroke Social History Smoking and tobacco/nicotine status: never used tobacco/nicotine Alcohol intake: current Alcohol intake frequency: holidays/special occasions only Alcohol type: beer Substance/Drug Use: never Household members: spouse Marital status: Current occupational status: retired Data Anesthesia Cardiac Studies: Echocardiogram Ultrasound 12/25/19 Sestamibi Stress Test (Cardiology) 05/30/24
[2024-12-18] MEDS: sodium chloride 0.9% 1,000 ML 30 ML IV (07:13)
[2024-12-18 07:18] LABS: Glucose Point of Care 149 mg/dL (70-110)
--- NOTE | 2024-12-18 07:51 | P.HPUD_ITS ---
Surgery/Procedure H&P Update DATE OF PROCEDURE: December 18, 2024 DATE H&P PERFORMED: 11/29/24 H&P UPDATE INFORMATION: I have reviewed H&P completed within last 30 days, I have examined patient prior to procedure, No changes to prior documentation and H&P is in [facility] EMR on date indicated PREOP DIAGNOSIS: Right hallux rigidus and 2nd hammertoe PLANNED PROCEDURE: Operation Date: 12/18/24 08:00 Proposed Procedures p first metatarsophalangeal joint arthrodesis(Right) - Vance Lovell DPM s second metatarsal Steve osteotomy(Right) - Vance Lovell DPM s second hammertoe repair proximal interphalangeal joint arthrodesis(Right) - Vance Lovell DPM s Tendon Transfer Foot Flexor Digitorum Longus To Extensor Digitorum Longus Tendon Transfer(Right) - Vance Lovell DPM
[2024-12-18] MEDS: ceFAZolin 2,000 mg SDV 2000 MG IVP (08:07)
[2024-12-18] MEDS: BUPivacaine 0.5% INJ 30 mL INJECTION (08:20)
--- NOTE | 2024-12-18 10:35 | W.PM.BPON ---
Date of procedure: 12/18/2024 Surgeon name: Dr. Vance Lovell D.P.M. [employer] Manager(s) name(s): Ty Procedure(s) performed: 1. Right foot first metatarsophalangeal joint arthrodesis 2. Right foot second digit proximal interphalangeal joint arthrodesis 3. Right foot second metatarsal Steve osteotomy 4. Right foot flexor to extensor tendon transfer of second digit Description of findings: Arthritis first metatarsophalangeal joint, hammertoe second digit Estimated blood loss: 5 cc Tourniquet time: 1 hour 58 minutes Specimen(s) removed: None Post-operative diagnosis: Hallux rigidus, hammertoe right foot
--- NOTE | 2024-12-18 10:37 | P.OP_ITS ---
Operative Report Date of procedure: December 18, 2024 Surgeon: Vance Lovell DPM Procedure: Date of procedure: 12/18/2024 Pre-op diagnosis: 1. Right hallux rigidus 2. Right foot second digit hammertoe 3. Right foot metatarsalgia Post-op diagnosis: Same Post-op findings: Right foot hallux rigidus with hammertoe deformity of second digit Procedure done: 1. Right foot first metatarsophalangeal joint arthrodesis CPT 15028 2. Right foot second digit proximal interphalangeal joint arthrodesis CPT 21633 3. Right foot second metatarsal Steve osteotomy CPT 26421 4. Right foot flexor to extensor tendon transfer of second digit CPT 94643 Implants: First metatarsophalangeal joint plate, 3.0 headless compression screw, 2.0 headed cannulated screw, 0.045 K wire x 1 Specimens removed: None Surgeon: Dr. Vance Lovell DPM Chute Tender: Ty Estimated blood loss: 5 cc Tourniquet time: 1 hour 58 minutes Complications: None Patient is a 69-year-old male that has a history of right foot hallux rigidus with second hammertoe deformity. The patient has had the aforementioned chief complaint for some time. Conservative treatment measures have been attempted and the patient has opted for surgical intervention at this time. A lengthy discussion regarding the procedure, including risks and complications has been had with the patient and is noted in the recent clinic note. Written and verbal consent have been obtained. All patient questions have been answered to the patient?s satisfaction. No written or verbal guarantees have been given or implied. The patient has been NPO since midnight. The history has been reviewed and the history and physical is current. The signed consent was confirmed and placed in the patient chart. Patient imaging has been reviewed and is consistent with the diagnosis. Under mild sedation, the patient was brought into the operating room and placed on the table in the supine position. IV antibiotics were given by the anesthesia team as preoperative surgical prophylaxis. IV sedation was then p erformed by the anesthesiateam. A local field block was performed using 0.5% Marcaine plain. A pneumatic tourniquet was then placed about the right ankle. The operative extremity was then prepped and draped in the usual fashion. The extremity was then elevated and exsanguinated before the tourniquet was inflated to 250 mmHg. After inflation, the following procedure was then performed. Attention was directed to the right first metatarsophalangeal joint where a 6 cm incision was made using #15 blade. Dissection was carried down to subcutaneous and superficial fascia to the level of the first metatarsophalangeal joint capsule. Capsule was incised using a #15 blade to expose the underlying first metatarsophalangeal joint. Sesamoid apparatus was freed up using a McGlamry elevator at this time. Next a reamer was used to ream the head of the first metatarsal and base of the proximal phalanx to remove articular cartilage and subchondral bone in preparation for arthrodesis. Medial eminence of first metatarsal head was removed using a sagittal bone saw. Hallux was positioned into an appropriate position before being temporarily fixated. First metatarsophalangeal joint arthrodesis plate from [employer] was then positioned over the first metatarsophalangeal joint and placed per manufacture protocol using combination of locking and nonlocking screws. Good compression across the joint was noted. A 2.5 fully threaded headless screw was then inserted across the first metatarsophalangeal joint to stabilize the repair. Good positioning of the plate and screws was noted clinically as well as on C- arm imaging. Attention was then directed to the right foot second digit where a 6 cm incision was made using a #15 blade. Dissection was carried down to the level of the extensor tendon which was split longitudinally in the Z-lengthening fashion. The proximal phalangeal joint was exposed. The head of the proximal phalanx and base of the intermediate phalanx were then resected using a rongeur. The second tarsal phalangeal joint capsule was also incised with a #15 blade to expose the underlying second metatarsal head. Sagittal bone saw was used to perform a Steve osteotomy in standard fashion. Second metatarsal head was noted to be in a more appropriate anatomic position. A 2.0 headed short threaded screw from [employer] was then inserted across the Steve osteotomy site. Good positioning of the screw was noted. Attention was directed to dissection to expose the underlying flexor digitorum longus tendon. This was isolated and transected as distally as possible transversely before being split longitudinally and wraparound to the dorsal aspect of the proximal phalanx. 0.045 K wire was then driven into the base of the intermediate phalanx at the distal aspect of the toe before being driven in retrograde fashion back into the proximal phalanx and into the second metatarsal head. Using 2-0 Ethibond the flexor tendons were fixated to each other on the dorsal aspect of the proximal phalanx before being sutured into the extensor tendon for the extensor tendon repair. All incisions were then irrigated with copious amounts of sterile saline before attention was directed to closure. Deep tissue including capsular closure was performed using 3-0 Vicryl followed by subcuticular closure with 4-0 Vicryl and skin closure using 4-0 nylon in horizontal mattress and running interlocking suture types. The incision sites were dressed with Xeroform, 4 x 4 gauze, Kerlix Reddy. The tourniquet was let down good hyperemic response was noted to all digits of the right foot. The patient tolerated the procedure and anesthesia well and without complication. The patient was transported from the operating room to the recovery room with vital signs stable and vascular status intact to all digits of the right foot. The patient was given both written and verbal instructions to remain nonweightbearing to the operative extremity, to keep dressings/splint c lean, dry and intact and to take pain medication as directed. The patient will follow-up in the outpatient setting at their scheduled appointment. The patient was discharged with my personal number and was instructed to call if any questions or issues should arise. They were discharged home once anesthesia criteria was met.
[2024-12-18] MEDS: HYDROcodone-acetaminophen 5-325 mg Tablet 1 TAB PO (11:26)
--- NOTE | 2024-12-18 12:19 | ANE.PACU2 ---
Inpatient post-anesthesia follow up: Airway intact: Yes Vital signs: Temperature 98 F Pulse Rate 50 Respiratory Rate 18 Blood Pressure 133/74 Pulse Oximetry 100 Oxygen Delivery Me thod Room Air Oxygen Flow Rate 8 Fraction of Inspir ed Oxygen Hydration adequate: Yes Nausea and vomiting: No Pain level: 2 Mental status: Baseline
--- NOTE | 2024-12-18 14:08 | XR_ITS ---
WS: [id number] Exam: XR toe RT min 2V [id number] Date/Time of Exam: 12/18/2024 2:08 PM Reason For Exam: Right foot first metatarsophalangeal joint arthrodesis AP and lateral intraoperative views of the RIGHT forefoot are submitted. There is plate and screw fixation of the first MP joint secondary to bunion repair. Hardware appears to be intact. There is also an orthopedic pin coursing through the long axis of the second toe and ending in the head of the second meta tarsal. An additional screw is seen in the second metatarsal head. There are no other postoperative changes identified.
== END 2024-12-18 12:50 | disposition home or self-care (01) ==
PROVIDERS: PCP Family Medicine; Visit Provider Podiatrist Foot & Ankle Surgery
PROC: (CPT 28740; principal; 2024-12-18 07:50)
PROC: (CPT 28308; 2024-12-18 07:50)
PROC: (CPT 28285; 2024-12-18 07:50)
PROC: (CPT 28750; 2024-12-18 07:50)
DX: M20.21 Hallux rigidus, right foot (principal); M20.41 Other hammer toe(s) (acquired), right foot; M77.41 Metatarsalgia, right foot; E78.5 Hyperlipidemia, unspecified; I25.10 Atherosclerotic heart disease of native coronary artery without angina pectoris; E11.9 Type 2 diabetes mellitus without complications; I10 Essential (primary) hypertension; Z79.899 Other long term (current) drug therapy; Z79.84 Long term (current) use of oral hypoglycemic drugs; Z79.82 Long term (current) use of aspirin; Z95.5 Presence of coronary angioplasty implant and graft
CPT/HCPCS: 28750; 28285; 28308; 27690; 36416; 73660; 76000; 82962; C1713; J0690; J2704; J3010; J3490; J7030; J9999

== ENCOUNTER → 2024-12-25 14:07 | Outpatient (BNVA) | payer MEDICARE, SELFPAY | PROVIDERS: PCP Family Medicine; Visit Provider Podiatrist Foot & Ankle Surgery | DX: M20.11 Hallux valgus (acquired), right foot (principal); M20.21 Hallux rigidus, right foot; M20.41 Other hammer toe(s) (acquired), right foot; M20.42 Other hammer toe(s) (acquired), left foot; M21.621 Bunionette of right foot; M21.622 Bunionette of left foot; E11.69 Type 2 diabetes mellitus with other specified complication; Z79.84 Long term (current) use of oral hypoglycemic drugs | CPT/HCPCS: 73630; 99024 ==

== ENCOUNTER → 2025-01-01 12:43 | Outpatient (BNVA) | payer MEDICARE, SELFPAY | PROVIDERS: PCP Family Medicine; Visit Provider Podiatrist Foot & Ankle Surgery | DX: M20.41 Other hammer toe(s) (acquired), right foot (principal); M20.42 Other hammer toe(s) (acquired), left foot; M21.621 Bunionette of right foot; M21.622 Bunionette of left foot; M20.21 Hallux rigidus, right foot; M20.11 Hallux valgus (acquired), right foot; E11.9 Type 2 diabetes mellitus without complications; L03.031 Cellulitis of right toe; Z79.84 Long term (current) use of oral hypoglycemic drugs | CPT/HCPCS: 99214 ==

== ENCOUNTER → 2025-01-15 15:07 | Outpatient (BNVA) | payer MEDICARE, SELFPAY | PROVIDERS: PCP Family Medicine; Visit Provider Podiatrist Foot & Ankle Surgery | DX: M20.11 Hallux valgus (acquired), right foot (principal); M20.21 Hallux rigidus, right foot; M20.41 Other hammer toe(s) (acquired), right foot; M20.42 Other hammer toe(s) (acquired), left foot; M21.621 Bunionette of right foot; M21.622 Bunionette of left foot; E11.69 Type 2 diabetes mellitus with other specified complication; Z98.1 Arthrodesis status; Z79.84 Long term (current) use of oral hypoglycemic drugs | CPT/HCPCS: 73630; 99024 ==

== ENCOUNTER → 2025-01-29 12:48 | Outpatient (BNVA) | payer MEDICARE, SELFPAY | PROVIDERS: PCP Family Medicine; Visit Provider Podiatrist Foot & Ankle Surgery | DX: Z98.890 Other specified postprocedural states (principal); M20.41 Other hammer toe(s) (acquired), right foot; M20.42 Other hammer toe(s) (acquired), left foot; M21.621 Bunionette of right foot; M21.622 Bunionette of left foot; M20.21 Hallux rigidus, right foot; M20.11 Hallux valgus (acquired), right foot; E11.69 Type 2 diabetes mellitus with other specified complication; Z98.1 Arthrodesis status; Z79.84 Long term (current) use of oral hypoglycemic drugs | CPT/HCPCS: 73630; 99024 ==

== ENCOUNTER → 2025-02-22 13:43 | Outpatient (BNVA) | payer MEDICARE, SELFPAY | PROVIDERS: PCP Family Medicine; Visit Provider Podiatrist Foot & Ankle Surgery | DX: M20.21 Hallux rigidus, right foot (principal); E11.9 Type 2 diabetes mellitus without complications; E11.69 Type 2 diabetes mellitus with other specified complication; M20.41 Other hammer toe(s) (acquired), right foot; M20.42 Other hammer toe(s) (acquired), left foot; M21.621 Bunionette of right foot; M21.622 Bunionette of left foot; M20.11 Hallux valgus (acquired), right foot; Z98.1 Arthrodesis status; Z79.84 Long term (current) use of oral hypoglycemic drugs | CPT/HCPCS: 73630; 99024 ==

== ENCOUNTER → 2025-06-05 15:11 | Outpatient (BNVA) | payer MEDICARE, SELFPAY | PROVIDERS: PCP Family Medicine; Visit Provider Internal Medicine Cardiovascular Disease | DX: I25.10 Atherosclerotic heart disease of native coronary artery without angina pectoris (principal); I10 Essential (primary) hypertension; E78.5 Hyperlipidemia, unspecified; E11.9 Type 2 diabetes mellitus without complications; I87.2 Venous insufficiency (chronic) (peripheral); Z79.84 Long term (current) use of oral hypoglycemic drugs | CPT/HCPCS: 99214 ==

== ENCOUNTER → 2025-07-24 08:00 | Outpatient (BNVA) | payer MEDICARE, SELFPAY | PROVIDERS: PCP Family Medicine; Visit Provider Podiatrist Foot & Ankle Surgery | DX: M21.621 Bunionette of right foot (principal); M21.622 Bunionette of left foot; M20.41 Other hammer toe(s) (acquired), right foot; M20.42 Other hammer toe(s) (acquired), left foot; E11.9 Type 2 diabetes mellitus without complications; Z98.1 Arthrodesis status; M19.072 Primary osteoarthritis, left ankle and foot; Z79.84 Long term (current) use of oral hypoglycemic drugs | CPT/HCPCS: 73610; 73630; 99213 ==

== ENCOUNTER → 2025-08-15 07:20 | Outpatient (BNVA) | payer MEDICARE, SELFPAY | PROVIDERS: PCP Family Medicine; Visit Provider Podiatrist Foot & Ankle Surgery | DX: M20.41 Other hammer toe(s) (acquired), right foot (principal); M20.42 Other hammer toe(s) (acquired), left foot; M21.621 Bunionette of right foot; M21.622 Bunionette of left foot; E11.9 Type 2 diabetes mellitus without complications; Z98.1 Arthrodesis status; M19.072 Primary osteoarthritis, left ankle and foot; M20.12 Hallux valgus (acquired), left foot; M20.5X2 Other deformities of toe(s) (acquired), left foot; E11.69 Type 2 diabetes mellitus with other specified complication; Z79.84 Long term (current) use of oral hypoglycemic drugs | CPT/HCPCS: 99214 ==

== ENCOUNTER 2025-09-24 06:57 | Day surgery (SDC) | payer MEDICARE, SELFPAY ==
--- NOTE | 2025-09-18 12:34 | SUR.PREOP ---
[id number] patient called for telephone pre-op,stated that he was waiting on Dolores from Dr. Lovell's office to call him back regarding him taking his aspirin today and was instructed per his magistrate assistant to hold his Aspirin 81mg for 7 days prior to surgery.
[2025-09-24] VITALS (10 sets, daily range): BP systolic 105–136; BP diastolic 59–85; PULSE 56–94; RESP 15–18; TEMP 36.1–36.8; O2SAT 93–98; BMI 31.8
--- NOTE | 2025-09-24 | XR_ITS ---
WS: [id number] Left foot, C-arm fluoroscopy views, 09/24/2025 Clinical Data: Left first metatarsophalangeal joint arthrodesis, 2nd throug Comparison: Left foot Findings: Dr. Lovell performed arthrodesis of the left first MTP joint and insertion of longitudinal pins into the second through fourth toes. XR/XR foot LT min 3V* [id number] Impression: Operative changes of the left first through fourth toes.
--- NOTE | 2025-09-24 08:08 | W.PM.OPSFHP ---
Same Day Surgery H&P Indication for Procedure/HPI DATE OF PROCEDURE: September 24, 2025 CHIEF COMPLAINT/INDICATIONFOR SURGICAL PROCEDURE: Left foot hallux rigidus, hammertoes, tailor's bunion PREOP DIAGNOSIS: Left foot hallux rigidus, hammertoes, tailor's bunion PLANNED PROCEDURE: Operation Date: 09/24/25 08:35 Proposed Procedures p Left first metatarsophalangeal joint arthrodesis(Left) - Vance Lovell DPM s Left second, third, fourth and fifth hammertoe repair(Left) - JUSTINE Belle Tendon Transfer left third digit and fourth digit Foot Flexor Digitorum Longus To Extensor Digitorum Longus(Left) - JUSTINE Belle Bunionectomy Tailors(Left) - JUSTINE Belle Left foot second metatarsal Steve osteotomy(Left) - Vance Lovell DPM Medications/Allergies* Home Medications ?Medication ?Instructions ?Recorded ?Confirmed ?Type lisinopril 10 mg tablet 10 mg PO DAILY 12/25/19 09/24/25 History metformin 500 mg tablet 1,000 mg PO DAILY 01/02/20 09/24/25 History multivitamin 1 tab PO DAILY 04/01/20 09/24/25 History omega-3 fatty acids 1,000 mg 1,000 mg PO DAILY 04/01/20 09/24/25 History capsule (Fish Oil Concentrate) isosorbide dinitrate 5 mg tablet 5 mg PO BID 09/18/25 09/24/25 History Allergies/Adverse Reactions Allergy/AdvReac Type Severity Reaction Status Date / Time No Known Allergies Allergy Verified 09/18/25 12:19 Current Medications: Generic Name Dose Route Start Last Admin Trade Name Freq PRN Reason Stop Dose Admin Sodium Chloride 1,000 mls @ 30 mls/hr 09/24/25 07:00 09/24/25 07:20 Sodium Chloride 0.9% IV 09/25/25 06:59 30 mls/hr .Q24H [facility] Administration Pertinent History/Comorbid Conditions* Medical History (Updated 08/17/25 @ 04:50 by Vance Lovell DPM) Dyslipidemia CAD (coronary artery disease) Coronary artery disease HTN (hypertension) Diabetes mellitus, type II Surgical History (Updated 03/17/22 @ 10:32 by Ryan Spencer MD) S/P cholecystectomy Status post laparoscopic cholecystectomy (07/10/20) H/O circumcision H/O vasectomy with reversal History of tonsillectomy H/O heart artery stent Family History (Updated 01/02/20 @ 11:35 by Aleisha Hassan RN) Diabetes Mother Cancer Mother Grandfather Grandmother Father Hypertension Mother Grandfather Grandmother Sister Denies family history of CAD (coronary artery disease) Clotting disorder Dementia Hyperlipidemia Psychiatric illness Chronic kidney disease (CKD) Suicide Anesthesia complication Bleeding disorder Family history of premature coronary artery disease Lung disease Stroke Social History Smoking and tobacco/nicotine status: never used tobacco/nicotine Alcohol intake: current Alcohol intake frequency: holidays/special occasions only Alcohol type: beer Substance/Drug Use: never Household members: spouse Marital status: Current occupational status: retired Pertinent Exam Findings alert, oriented x 3, clear to auscultation bilaterally, regular rate & rhythm, operative site marked and procedure specific exam findings BELOW IS A FOCUSED LOWER EXTREMITY EXAM VASCULAR: DP/PT pulses palpable 2/4 with CFT intact, <3 seconds to distal digits. DERMATOLOGICAL: Skin turgor and temperature within normal limits. No open wounds, erythema, or edema noted. MUSCULOSKELETAL: Left foot demonstrates hallux valgus deformity with increased 1?2 intermetatarsal angle measuring 13? and HAV angle measuring 26? per radiographic evaluation. Tenderness noted to the distal syndesmotic region of the left ankle. No pain with ankle joint range of motion. Mild tenderness with deep palpation to medial gutter of the ankle joint. Muscle strength 5/5 in all quadrants. No gross instability appreciated. Hammertoe deformities digits 2 through 5 left foot with tailor's bunion prominence NEUROLOGICAL: Neurological sensation to the left foot and ankle is intact through L4?S1 dermatomes. No hyper/hypoesthesias. IMAGIN-view x-rays of the left ankle were obtained at today?s visit and independently interpreted by me. These show osteophyte formation to the medial gutter of the ankle joint off the talus. The talus is well positioned within the ankle mortise. No fracture or dislocation noted. 3-view x-rays of the left foot were also obtained and independently interpreted by me. These demonstrate metatarsus adductus with hallux valgus deformity, increased 1?2 intermetatarsal angle of 13? and hallux valgus angle of 26?. No evidence of fracture or dislocation. Hammertoe deformities with tailor's bunion deformity present Recommendations Surgery/Procedure today Coding Level of Care Code Acute Code for Chg Fwd
--- NOTE | 2025-09-24 08:23 | ANES.PREANE2 ---
Pre-Anesthetic Assessment Height/Weight: Height 1.83 m Weight 106.594 kg Temp Pulse Resp BP Pulse Ox O2 Del Method 97 F L 66 18 132/85 98 Room Air 09/24/25 07:09 09/24/25 07:09 09/24/25 07:09 09/24/25 07:09 09/24/25 07:09 09/24/25 07:09 Preop Diagnosis: Left foot hallux rigidus, hammertoes, tailor's bunion Operation Date: 09/24/25 08:35 Proposed Procedures p Left first metatarsophalangeal joint arthrodesis(Left) - Vance Lovell DPM s Left second, third, fourth and fifth hammertoe repair(Left) - JUSTINE Belle Tendon Transfer left third digit and fourth digit Foot Flexor Digitorum Longus To Extensor Digitorum Longus(Left) - JUSTINE Belle Bunionectomy Tailors(Left) - JUSTINE Belle Left foot second metatarsal Steve osteotomy(Left) - Vance Lovell DPM Familial anesthetic complications: None Was Beta Silvio taken within 24 hours: Yes Was Clonidine taken within 24 hours: N/A Last intake: Intake Last Liquid Date 09/23/25 Last Liquid Time 18:30 Last Solid Date 09/23/25 Last Solid Time 18:30 Social No alcohol and No tobacco Exam alert, oriented x 3, clear to auscultation bilaterally and regular rate & rhythm Airway Mallampati: Class IV Dentition: chipped Comments: Comments: full hernandez CV/HEM Arrythmia, Coronary Artery Disease and Hypertension Metabolic Diabetes Mellitus Anesthetic Plan ASA status: 4 Anesthesia: General Risk of > 500 ml blood loss (7ml/kg in children): No Medications/Allergies Home Medications ?Medication ?Instructions ?Recorded ?Confirmed ?Last Taken ?Type lisinopril 10 mg tablet 10 mg PO DAILY 12/25/19 09/24/25 09/24/25 History aspirin 81 mg tablet,delayed 81 mg PO DAILY #90 tabs 12/26/19 09/24/25 09/24/25 Rx release metformin 500 mg tablet 1,000 mg PO DAILY 01/02/20 09/24/25 09/24/25 History multivitamin 1 tab PO DAILY 04/01/20 09/24/25 09/23/25 History omega-3 fatty acids 1,000 mg 1,000 mg PO DAILY 04/01/20 09/24/25 09/23/25 History capsule (Fish Oil Concentrate) nitroglycerin 0.4 mg sublingual 0.4 mg sublingual Q5M PRN chest 05/02/24 09/24/25 Unknown Rx tablet pain #30 tabs Crutches #1 ea 11/29/24 08/15/25 Unknown Rx Knee Scooter #1 ea 11/29/24 08/15/25 Unknown Rx metoprolol succinate 25 mg 25 mg PO DAILY #90 tabs 01/19/25 09/24/25 09/24/25 Rx tablet,extended release 24 hr ankle brace #1 ea 07/24/25 08/15/25 Unknown Rx isosorbide dinitrate 5 mg tablet 5 mg PO BID 09/18/25 09/24/25 09/23/25 History atorvastatin 40 mg tablet 40 mg PO BEDTIME #90 tabs 09/24/25 Unknown Rx hydrocodone 5 mg-acetaminophen 325 1 tab PO Q6H PRN pain #28 tabs 09/24/25 Unknown Rx mg tablet Allergies Allergy/AdvReac Type Severity Reaction Status Date / Time No Known Allergies Allergy Verified 09/18/25 12:19 Current Medications Generic Name Dose Route Start Last Admin Trade Name Freq PRN Reason Stop Dose Admin Sodium Chloride 1,000 mls @ 30 mls/hr 09/24/25 07:00 09/24/25 07:20 Sodium Chloride 0.9% IV 09/25/25 06:59 30 mls/hr .Q24H [facility] Administration PFSH Anesthesia Medical History Dyslipidemia CAD (coronary artery disease) Coronary artery disease HTN (hypertension) Diabetes mellitus, type II Surgical History S/P cholecystectomy Status post laparoscopic cholecystectomy (07/10/20) H/O circumcision H/O vasectomy with reversal History of tonsillectomy H/O heart artery stent Family History Mother Cancer Diabetes Hypertension Grandfather Cancer Hypertension Grandmother Cancer Hypertension Sister Hypertension Father Cancer Denies family history of CAD (coronary artery disease) Clotting disorder Dementia Hyperlipidemia Psychiatric illness Chronic kidney disease (CKD) Suicide Anesthesia complication Bleeding disorder Family history of premature coronary artery disease Lung disease Stroke Social History Smoking and tobacco/nicotine status: never used tobacco/nicotine Alcohol intake: current Alcohol intake frequency: holidays/special occasions only Alcohol type: beer Substance/Drug Use: never Household members: spouse Marital status: Current occupational status: retired Data Anesthesia Cardiac Studies: Echocardiogram Ultrasound 12/25/19 Sestamibi Stress Test (Cardiology) 05/30/24
[2025-09-24] MEDS: ceFAZolin 2,000 mg SDV 2000 MG IVP (08:33)
[2025-09-24] MEDS: BUPivacaine 0.5% INJ 30 mL INJECTION (09:03)
--- NOTE | 2025-09-24 10:25 | W.PM.BPON ---
Date of procedure: 09/24/2025 Surgeon name: Scott PaytonPKatherine Photoengraving Machine Operator/Tender(s) name(s): Debra Cuellar Procedure(s) performed: Left first metatarsophalangeal joint arthrodesis, 2nd through 4th proximal interphalangeal joint arthrodesis, 2nd and 3rd flexor digitorum longus to extensor digitorum longus tendon transfer, tailor's bunionectomy Description of findings: Hallux rigidus, hammertoes, tailor's bunion Estimated blood loss: 5 cc Tourniquet time: 87 minutes Specimen(s) removed: None Post-operative diagnosis: See above
--- NOTE | 2025-09-24 10:27 | P.OP_ITS ---
Operative Report Date of procedure: September 24, 2025 Surgeon: Vance Lovell DPM Procedure: Date of procedure: 09/24/2025 Pre-op diagnosis: Left foot hallux rigidus, hammertoes 2 through 5 left foot, tailor's bunion Post-op diagnosis: Same Post-op findings: See below Procedure done: 1. Left foot first metatarsophalangeal joint arthrodesis CPT 61396 2. Left foot second hammertoe repair CPT 47400 3. Left foot third hammertoe repair CPT 27922 4. Left foot fourth hammertoe repair CPT 36755 5. Left foot second digit flexor digitorum longus to extensor digitorum longus tendon transfer CPT 97108 6. Left foot third digit flexor digitorum longus to extensor digitorum longus tendon transfer CPT 38731 7. Left foot tailor's bunionectomy CPT 93390 Implants: Left foot first metatarsophalangeal joint arthrodesis plate, 3.5 head less compression screw, 0.045 K wire x 3 Specimens removed: None Surgeon: Dr. Vance Lovell DPM [employer]: Debra Estimated blood loss: 5 cc Tourniquet time: 87-minutes Complications: None Patient is a 69-year-old male that has a history of left foot hallux rigidus, hammertoes and tailor's bunion. The patient has had the aforementioned chief complaint for some time. Conservative treatment measures have been attempted and the patient has opted for surgical intervention at this time. A lengthy discussion regarding the procedure, including risks and complications has been had with the patient and is noted in the recent clinic note. Written and verbal consent have been obtained. All patient questions have been answered to the patient?s satisfaction. No written or verbal guarantees have been given or implied. The patient has been NPO since midnight. The history has been reviewed and the history and physical is current. The signed consent was confirmed and placed in the patient chart. Patient imaging has been reviewed and is consistent with the diagnosis. Under mild sedation, the patient was brought into the operating room and placed on the table in the supine position. IV antibiotics were given by the anesthesia team as preoperative surgical prophylaxis. General sedation was then performed by the anesthesiateam. A local field block was performed using 0.5% Marcaine plain. A pneumatic tourniquet was then placed about the left ankle. The operative extremity was then prepped and draped in the usual fashion. The extremity was then elevated and exsanguinated before the tourniquet was inflated to 250 mmHg. After inflation, the following procedure was then performed. Attention was directed to the left first metatarsophalangeal joint where a 4.5 cm incision was made dorsally using a #15 blade. Dissection was carried down through subcutaneous and superficial fascia to the level of the first metatarsophalangeal joint capsule. Any bleeders were cauterized as necessary using electrocautery. Care was taken to preserve the extensor hallucis longus tendon as well as the medial neurovascular bundle. #15 blade was used to incise the first metatarsophalangeal joint thus exposing the underlying first metatarsal phalangeal joint. Dissection was further carried out using a #15 blade to expose the entirety of the first metatarsophalangeal joint and the head of the first metatarsal. There was noted to be erosive changes in the head of the first metatarsal consistent with arthritis. There is also noted to be periarticular spurring. Using a sagittal bone saw the osteophytes at the first metatarsal head were removed and passed from the operative field. Next a 0.062 K wire was driven into the head of the first metatarsal centrally before a concave reamer was placed over the wire and used to ream the first metatarsal head. After reaming, all articular cartilage from the head of the first metatarsal was noted to be removed duration for arthrodesis. Next a 0.062 K wire was removed and driven into the base the proximal phalanx centrally. A corresponding convex reamer was used to remove the articular cartilage from the base the proximal phalanx preparation for arthrodesis. Next the site was irrigated with copious muscle sterile saline before K wire was used to fenestrate the head of first metatarsal base the proximal phalanx. The hallux was then positioned into the appropriate position clinically as well as radiographically which was confirmed on C-arm fluoroscopy. The dorsal first metatarsophalangeal joint plate from [employer] was then positioned into the appropriate position and temporarily fixated using olive wires. Good positioning of the plate was noted clinically as well as on C-arm imaging. A 3.5 mm headless compression lag screw was then driven across the arthrodesis site to provide compression and a distal medial to proximal lateral orientation. The first metatarsophalangeal joint arthrodesis plate was then drilled and filled in standard fashion. Final C arm images were obtained to confirm the positioning of the plate and screws, they were noted to be in the appropriate position. Attention was directed to the second digit of the left foot where a 2.5 cm linear incision was made over the proximal interphalangeal joint using a #15 blade. Dissection was carried down through subcutaneous and superficial fascia to the level of the extensor digitorum longus tendon which was transected transversely using a #15 blade. After transection of the tendon and proximal interphalangeal joint capsule of the proximal interphalangeal joint was clearly visualized. The medial and lateral collateral ligaments of the joint were released using a #15 blade. The entirety of the proximal interphalangeal joint was then visualized. A sagittal bone saw was then used to remove the articular condyles from the head of the proximal phalanx. These were passed from the operative field. A rongeur was then used to remove the articular cartilage from the base of the intermediate phalanx in preparation for arthrodesis. The site was then irrigated with copious amounts sterile saline. Dissection was carried out to expose the long flexor which was isolated and transected as distal as possible before being split longitudinally and wraparound to the dorsal aspect of the proximal phalanx. This was repaired on the dorsal aspect of the proximal phalanx using 2-0 Ethibond at the same time as the repair of the extensor tendon. A 0.045 K wire was then driven into the base of the intermediate phalanx and out the distal aspect of the toe before being driven in retrograde fashion back into the proximal phalanx and then across the metatarsal phalangeal joint into the head of the metatarsal. Good positioning of the wire and arthrod esis site was noted on C-arm imaging. Attention was directed to the third digit of the left foot where a 2.5 cm linear incision was made over the proximal interphalangeal joint using a #15 blade. Di ssection was carried down through subcutaneous and superficial fascia to the level of the extensor digitorum longus tendon which was transected transversely using a #15 blade. After transection of the tendon and proximal interphalangeal joint capsule of the proximal interphalangeal joint was clearly visualized. The medial and lateral collateral ligaments of the joint were released using a #15 blade. The entirety of the proximal interphalangeal joint was then visualized. A sagittal bone saw was then used to remove the articular condyles from the head of the proximal phalanx. These were passed from the operative field. A rongeur was then used to remove the articular cartilage from the base of the intermediate phalanx in preparation for arthrodesis. The site was then irrigated with copious amounts sterile saline. Dissection was carried out to expose the long flexor which was isolated and transected as distal as possible before being split longitudinally and wraparound to the dorsal aspect of the proximal phalanx. This was repaired on the dorsal aspect of the proximal phalanx using 2-0 Ethibond at the same time as the repair of the extensor tendon. A 0.045 K wire was then driven into the base of the intermediate phalanx and out the distal aspect of the toe before being driven in retrograde fashion back into the proximal phalanx and then across the metatarsal phalangeal joint into the head of the metatarsal. Good positioning of the wire and arthrodesis site was noted on C-arm imaging. Attention was directed to the fourth digit of the left foot where a 2.5 cm linear incision was made over the proximal interphalangeal joint using a #15 blade. Dissection was carried down through subcutaneous and superficial fascia to the level of the extensor digitorum longus tendon which was transected transversely using a #15 blade. After transection of the tendon and proximal interphalangeal joint capsule of the proximal interphalangeal joint was clearly visualized. The medial and lateral collateral ligaments of the joint were released using a #15 blade. The entirety of the proximal interphalangeal joint was then visualized. A sagittal bone saw was then used to remove the articular condyles from the head of the proximal phalanx. These were passed from the operative field. A rongeur was then used to remove the articular cartilage from the base of the intermediate phalanx in preparation for arthrodesis. The site was then irrigated with copious amounts sterile saline. A 0.045 K wire was then driven into the base of the intermediate phalanx and out the distal aspect of the toe before being driven in retrograde fashion back into the proximal phalanx and then across the metatarsal phalangeal joint into the head of the metatarsal. Good positioning of the wire and arthrodesis site was noted on C-arm imaging. Attention was then directed to the fifth metatarsal head. A 15 blade was used to make stab incision at the level of the metatarsal neck laterally. Blunt dissection was carried down to the level of the metatarsal neck using a hemostat. Soft tissue was freed up in the dorsal and plantar aspect of the fifth metatarsal neck. Damaris bur was inserted into the incision and a transverse osteotomy was made through the metatarsal neck. The capital fragment was then translated medially in the transverse plane to correct the tailor's bunion deformity. All incisions were then irrigated with copious [place] sterile saline. Attention was directed to closure. Deep tissue was closed with 3-0 Vicryl followed by subcuticular closure with 4-0 Vicryl and skin closed with 4-0 nylon in horizontal mattress fashion. Incision was dressed with Xeroform, 4 4 gauze, Kerlix, Reddy The patient tolerated the procedure and anesthesia well and without complica tion. The patient was transported from the operating room to the recovery room with vital signs stable and vascular status intact to all digits of the left foot. The patient was given both written and verbal instructions to remain nonweightbearing to the operative extremity, to keep dressings/splint clean, dry and intact and to take pain medication as directed. The patient will follow-up in the outpatient setting at their scheduled appointment. The patient was discharged with my personal number and was instructed to call if any questions or issues should arise. They were discharged home once anesthesia criteria was met.
== END 2025-09-24 11:45 | disposition home or self-care (01) ==
PROVIDERS: PCP Family Medicine; Visit Provider Podiatrist Foot & Ankle Surgery
PROC: (CPT 28750; principal; 2025-09-24 08:25)
PROC: (CPT 28285; 2025-09-24 08:25)
PROC: (CPT 28750; 2025-09-24 08:25)
PROC: 0QBP0ZZ Excision of Left Metatarsal, Open Approach (ICD-10-PCS; CPT 28110; 2025-09-24 08:25)
DX: M20.22 Hallux rigidus, left foot (principal); M20.42 Other hammer toe(s) (acquired), left foot; M21.622 Bunionette of left foot; I25.10 Atherosclerotic heart disease of native coronary artery without angina pectoris; I10 Essential (primary) hypertension; I49.9 Cardiac arrhythmia, unspecified; E11.9 Type 2 diabetes mellitus without complications; Z79.82 Long term (current) use of aspirin; Z79.891 Long term (current) use of opiate analgesic; Z95.5 Presence of coronary angioplasty implant and graft; Z80.9 Family history of malignant neoplasm, unspecified; Z82.49 Family history of ischemic heart disease and other diseases of the circulatory system; Z83.3 Family history of diabetes mellitus; Z79.84 Long term (current) use of oral hypoglycemic drugs
CPT/HCPCS: 28750; 27690; 27692; 28308; 28285 ×3; 36416; 73630; 76000; 82962; C1713; J0690; J2250; J2704; J3010; J3490; J7030; J9999

== ENCOUNTER 2025-09-24 21:30 | Emergency (ER) | payer MEDICARE, SELFPAY ==
--- OUTSIDE RECORDS SUMMARY | 2025-09-24 21:34 | XMS_ITS | Clinical Summary ---
Author Organization [facility] Address [address] [facility] [address] [place] [address] Care Team Providers Care Sap Portal Developer Name Role Phone Kevan Sy MD Primary Care Provider [phone] Allergies No known active allergies Medications atorvastatin (Lipitor) 40 mg tablet Take 40 mg by mouth daily at bedtime. Active ticagrelor (Brilinta) 60 mg Tablet Take 60 mg by mouth 2 times daily. Active aspirin (RON CHEWABLE) 81 mg Tablet, Chewable Take 81 mg by mouth daily. Active ondansetron (ZOFRAN ODT) 4 mg Tablet, Rapid DissolveIndicat ions:Biliary colic Take 1 Tablet (4 mg) by mouth every 8 hours as needed for Nausea/Emesis . Dissolve tablet on top of tongue, then swallow with saliva. 10 Tablet 2 02/16/2020 Active HYDROcodone-mele taminophen (NORCO) 5-325 mg tabletIndicatio ns:Biliary colic Take 1 Tablet by mouth every 8 hours as needed for Pain, Moderate. Max Daily Amount: 3 Tablets 21 Tablet 02/16/2020 Active lisinopriL (PRINIVIL) 10 mg tabletIndicatio ns:HTN (hypertension), benign Take 1 tablet by mouth once daily 90 Tablet 3 04/19/2020 Active metoprolol succinate (TOPROL XL) 50 mg Extended Release 24 hour tabletIndicatio ns:HTN (hypertension), benign Take 1 tablet by mouth once daily 90 Tablet 3 04/19/2020 Active metFORMIN (GLUCOPHAGE) 1,000 mg tabletIndicatio ns:Type 2 diabetes mellitus without complication, without long-term current use of insulin (CMS/HCC) Take 1 Tablet (1,000 mg) by mouth daily with breakfast. 90 Tablet 4 06/28/2020 Active Active Problems Problem Noted Date Diagnosed Date Type 2 diabetes mellitus wit hout complication, without long-term current use of insulin 06/28/2020 Atherosclerosis of habematolel co ronary artery of habematolel heart without angina pectoris 06/28/2020 Calculus of gallbladder with out cholecystitis without obstruction 06/28/2020 Mixed hyperlipidemia 12/18/2019 HTN (hypertension), benign 10/06/2019 Prediabetes 10/06/2019 Immunizations Immunization Administration Dates Next Due (SPIKEVAX) (12 YRS UP PRIMAR Y SERIES) COVID-19 VACCINE - MRNA-1273(PF) 100 MCG/0.5 ML IM SUSP 12/10/2020,11/08/2020 INFLUENZA VACCINE HIGH DOSE QUADRIVALENT 65 YR UP PF IM 05/16/2020 Influenza Seasonal Unspecified Formulation IM Influenza Vaccine High Dose 65+ Yrs IM 9 Family History Medical History Relation Name Comments Lymphoma Father Liver Cancer Mother Relation Name Status Comments Father Mother Social History Tobacco Use Types Packs/Day Years Used Date Smoking Tobacco: Never Smokeless Tobacco: Never Alcohol Use Standard Drinks/Week Comments Not Currently 0 (1 standard drink = 0.6 oz pur e alcohol) Sex and Gender Information Value Date Recorded Sex Assigned at Not on file 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 Gender Identity Not on file Sexual Orientation Not on file Last Filed Vital Signs Vital Sign Reading Time Taken Comments Blood Pressure 128/74 06/28/2020 8:30 AM CDT Pulse 73 06/28/2020 8:30 AM CDT Temperature 36.9 C (98.4 F) 06/28/2020 8:30 AM CDT Respiratory Rate 16 06/28/2020 8:30 AM CDT Oxygen Saturation 98% 06/28/2020 8:30 AM CDT Inhaled Oxygen Concentration - - Weight 94.3 kg (208 lb) 06/28/2020 8:30 AM CDT Height 182.9 cm (6') 06/28/2020 8:30 AM CDT Body Mass Index 28.21 06/28/2020 8:30 AM CDT Plan of Treatment Health Maintenance Due Date Last Done Comments DIABETES ANNUAL FOOT EXAM 1971 DIABETES MICROALBUMIN ANNUAL SCREEN 1971 DTAP/TDAP/TD VACCINES (1 - Tdap) 1972 PNEUMOCOCCAL VACCINE 50+ YEA RS (1 of 2 - PCV) 1972 FIT-DNA Q 3 years 1998 FIT/FOBT Q 1 year 1998 Flex Sig/CT Colonography Q 5 years 1998 RSV VACCINE (60+ or ) (1 - Risk 50-74 years 1-dose series) 2003 ZOSTER VACCINE (1 of 2) 2003 DIABETES HBA1C Q 6 MONTHS 12/27/2020 06/28/2020, LDL CHOLESTEROL ANNUAL 06/28/2021 06/28/2020, 2019 COLORECTAL SCREENING 02/16/2024 02/15/2014 Colorectal Cancer Screening 02/16/2024 INFLUENZA VACCINE (#1) 2025 , 05/16/2020, 05/16/2020, Additional history exists COVID-19 Vaccine (3 - 2024-2 6 season) 2025 12/10/2020, 11/08/2020 DIABETES ANNUAL RETINAL EXAM 02/08/2026, 06/14/2023, 09/09/2021 Procedures Procedure Name Priority Date/Time Associated Diagnosis Comments LIPID PANEL Routine 06/28/2020 9:18 AM CDT Type 2 diabetes mellitus without complication, without long-term current use of insulin ([facility]) Mixed hyperlipidemia HTN (hypertension), benign Atherosclerosis of habematolel coronary artery of habematolel heart without angina pectoris HEMOGLOBIN A1C Routine 06/28/2020 9:18 AM CDT Type 2 diabetes mellitus without complication, without long-term current use of insulin ([facility]) from Last 3 Months or Most Recently Relevant to Health Maintenance Results * (ABNORMAL) HEMOGLOBIN A1C (06/28/2020 9:18 AM CDT) HEMOGLOBIN A1C 5.9(H) See Comment % 06/28/2020 9:03 PM CDT [facility] EST. AVG GLUCOSE, A1C 123 mg/dL 06/28/2020 9:03 PM CDT [facility] Blood Venipuncture / Unknown 06/28/2020 9:18 AM CDT 06/28/2020 8:06 PM CDT Narrative [facility] - 06/28/2020 9:03 PM CDT HGB A1C INTERPRETATION NORMAL: <5.7% PRE-DIABETES: 5.7 - 6.4% DIABETES: 6.5% OR GREATER Falsely low A1C measurements can occur when: 1. Anemia and/or hemolytic anemia is present. 2. Hemoglobin variants present. 3. Renal failure. 4. Transfusion of blood product in the last 120 days. We recommend ordering a fructosamine test(YIQ1204) to more accurately assess glycemic status if any of the above conditions are present. Kevan Sy MD CHEMISTRY ORDERABLES Lilian burleson Result [facility] CLIA# [id number] [address] [place] [id number] * LIPID PANEL (06/28/2020 9:18 AM CDT) CHOLESTEROL 100 <200 mg/dL 06/28/2020 8:37 PM CDT [facility] TRIGLYCERIDE 85 <150 mg/dL 06/28/2020 8:37 PM CDT [facility] HDL 44 40 - 59 mg/dL 06/28/2020 8:37 PM CDT [facility] LDL CALCULATED 39 <100 mg/dL 06/28/2020 8:37 PM CDT [facility] NON-HDL CHOLESTEROL 56 <130 mg/dL 06/28/2020 8:37 PM CDT [facility] Blood Venipuncture / Unknown 06/28/2020 9:18 AM CDT 06/28/2020 8:07 PM CDT Narrative [facility] - 06/28/2020 8:37 PM CDT TOTAL CHOLESTEROL mg/dL Desirable <200 Borderline high 200-239 High >=240 TRIGLYCERIDES mg/dL Normal <150 Borderline high 150-199 High 200-499 Very high >=500 HDL CHOLESTEROL mg/dL Low <40 Normal 40-59 Desirable >=60 NON HDL CHOLESTEROL mg/dL Optimal <130 Near Optimal 130-159 Borderline High 160-189 Very High >=190 CALCULATED LDL mg/dL LDL <70, OPTIMAL if have Atherosclerotic cardiovascular disease (ASCVD) or intermediate or higher (>7.5%) 10 year risk of ASCVD including most adults with diabetes. LDL <100, Optimal in adult patients with low (<7.5%) 10 year ASCVD risk LDL 100-160, Suboptimal LDL >160, High LDL >190, Very high ATPIII Guidelines Reference Ranges for Lipid Panels (NCEP/AMA) . Kevan Sy MD CHEMISTRY ORDERABLES Lilian burleson Result [facility]# [id number] [address] [place] [address] from Last 3 Months or Most Recently Relevant to Health Maintenance Care Teams Sap Portal Developer Relationship Specialty Start Date End Date Kevan Sy MD [address] [facility] [address] [place] [address] PCP - General Family Practice 10/06/19
--- OUTSIDE RECORDS SUMMARY | 2025-09-24 21:34 | XMS_ITS | Encounter Summary ---
Author Organization [facility] Address [address] [place] [address] Care Team Providers Care Pail Bailer Name Role Phone Kevan Sy MD Primary Care Provider [phone] Reason for Referral * Radiology Services (Urgent) - Closed Specialty Diagnoses / Procedures Referred By Contac t Referred To Contact Radiology Diagnoses Abdominal pain, RUQ Procedures US ABDOMEN LIMITED Nas Wray DO [address] [address] Phone: tel: fax: [facility] [address] [address] Phone: tel: fax: Referral ID Status Reason Start Date Expiration Date Visits Re quested Visits Authorized [id number] Closed 02/15/2020 03/17/2021 1 1 Encounter Details Date Type Department Care Team (Late st Contact Info) Description 02/15/[address] [facility] [address] [address] Nas Wray DO 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 No / Unsure 02/16/2020 8:15 AM CDT documented as of this encounter Plan of Treatment Not on file documented as of this encounter Results * US ABDOMEN LIMITED (02/16/2020 1:39 PM CDT) Anatomical Region Laterality Modality Abdomen Ultrasound 02/16/2020 1:39 PM CDT Impressions 02/16/2020 3:32 PM CDT IMPRESSION: Cholelithiasis with severe wall thickening. Clinical correlation with acute cholecystitis is requested. Nuclear medicine HIDA scan may be of benefit for further workup if clinically indicated. Echogenic nonmobile foci along the gallbladder wall favor cholesterol polyps or adenomyomatosis. [id number] Narrative 02/16/2020 3:32 PM CDT Exam: US ABDOMEN LIMITED Date/Time of Exam: 02/16/2020 1:39 PM Reason For Exam: See Diagnosis. Diagnosis: Abdominal pain, RUQ. Findings: Liver measures 16 cm in length and is otherwise unremarkable. Visualized portions of the pancreas are unremarkable. Right kidney measures 11 cm in length and is otherwise unremarkable. Nonmobile echogenic foci are noted along the gallbladder wall with ringdown artifact. Gallbladder shows severe focal wall thickening up to 13 mm. Shadowing small stone is noted within the gallbladder neck. Common duct measures 5.5 mm in diameter. Procedure Note Guillermo Jara MD - 02/16/2020 Exam: US ABDOMEN LIMITED Date/Time of Exam: 02/16/2020 1:39 PM Reason For Exam: See Diagnosis. Diagnosis: Abdominal pain, RUQ. Findings: Liver measures 16 cm in length and is otherwise unremarkable. Visualized portions of the pancreas are unremarkable. Right kidney measures 11 cm in length and is otherwise unremarkable. Nonmobile echogenic foci are noted along the gallbladder wall with ringdown artifact. Gallbladder shows severe focal wall thickening up to 13 mm. Shadowing small stone is noted within the gallbladder neck. Common duct measures 5.5 mm in diameter. IMPRESSION: Cholelithiasis with severe wall thickening. Clinical correlation with acute cholecystitis is requested. Nuclear medicine HIDA scan may be of benefit for further workup if clinically indicated. Echogenic nonmobile foci along the gallbladder wall favor cholesterol polyps or adenomyomatosis. [id number] us Nas Wray DO US ORDERABLES Final Res ult documented in this encounter Visit Diagnoses Diagnosis Abdominal pain, RUQ Abdominal pain, right upper quadrant Abdominal pain, RUQ Abdominal pain, right upper quadrant documented in this encounter Care Teams Pail Bailer Relationship Specialty Start Date End Date Kevan Sy MD [address] [facility] [address] [place] [address] PCP - General Family Practice 10/06/19 documented as of this encounter
--- OUTSIDE RECORDS SUMMARY | 2025-09-24 21:34 | XMS_ITS | Clinical Summary ---
Author Organization [facility] Address [address] [facility] [address] [place] [address] Care Team Providers Care Digester Operator Name Role Phone Kevan Sy MD Primary Care Provider [phone] Allergies No known active allergies Medications atorvastatin (LIPITOR) 40 mg tablet Take 40 mg by mouth daily at bedtime. 02/15/2020 Active aspirin (RON CHEWABLE) 81 mg Tablet, Chewable Take 81 mg by mouth daily. 02/15/2020 Active metoprolol succinate (TOPROL XL) 25 mg Extended Release 24 hour tablet Take 25 mg by mouth daily. 03/25/2021 Active isosorbide dinitrate (ISORDIL) 5 mg tablet TAKE 1 TABLET BY MOUTH TWICE DAILY. ALLOW NITRATE-FREE INTERVAL OF 12-14 HOURS PER 24 HOUR PERIOD. 02/18/2022 Active nitroglycerin (NITROSTAT) 0.4 mg Tablet, Sublingual Place 0.4 mg under tongue every 5 minutes as needed. 01/22/2022 Active metFORMIN (GLUCOPHAGE) 1,000 mg tabletIndicatio ns:Type 2 diabetes mellitus without complication, without long-term current use of insulin (CMS/HCC) Take 1 Tablet (1,000 mg) by mouth daily with breakfast. 100 Tablet 3 12/18/2024 Active HYDROcodone-mele taminophen (NORCO) 5-325 mg tablet Take 1 Tablet by mouth every 6 hours. 12/18/2024 Active lisinopriL (PRINIVIL) 10 mg tabletIndicatio ns:HTN (hypertension), benign Take 1 Tablet (10 mg) by mouth daily. 100 Tablet 3 01/09/2025 Active triamcinolone acetonide (KENALOG) 0.1 % OintmentIndicat ions:Poison sumac Apply to affected area 2 times daily. 80 Gram 03/19/2025 Active tiZANidine (ZANAFLEX) 2 mg TabletIndicatio ns:Spasm of thoracic back muscle Take 1 Tablet (2 mg) by mouth every 6 hours as needed for Spasm. 90 Tablet 07/11/2025 Active Active Problems Problem Noted Date Diagnosed Date Type 2 diabetes mellitus wit hout complication, without long-term current use of insulin 06/28/2020 Calculus of gallbladder with out cholecystitis without obstruction 06/28/2020 Atherosclerosis of nondalton co ronary artery of nondalton heart without angina pectoris 06/28/2020 Mixed hyperlipidemia 12/18/2019 HTN (hypertension), benign 10/06/2019 Resolved Problems Problem Noted Date Diagnosed Date Resolved Date Prediabetes 10/06/2019 01/09/2025 Encounters Date Type Department Care Team Description 09/11/2025 External Device Data STL ABSTRACTION Provider, Abstract 09/05/2025 9:07 AM NET SOFTWARE ARCHITECT - 09/05/2025 11:59 PM NET SOFTWARE ARCHITECT Hospital Encounter [facility] [address] [phone] Teddy Jones MD Discharge Disposition: Home or Self Care 09/04/2025 Patient Outreach [address] [phone] Kevan Sy MD Primary Care Outreach 09/03/[address] [phone] Corine Tabares FNP Information 08/31/2025 Results Follow-Up [address] [phone] Corine Tabares FNP XR WRIST 3+ VW RIGHT 08/31/2025 Orders Only [facility] [address] [place] [phone] Provider, Abstract 07/19/2025 9:30 AM CDT Office Visit [facility] [address] [place] [address] Rick Purvis MD Slac (scapholunate advanced collapse) of wrist, right (Primary Dx) 07/19/2025 Telephone [facility] [address] [phone] Kevan Sy MD Patient Communication 07/18/2025 External Device Data STL ABSTRACTION Provider, Abstract 07/11/2025 9:06 AM CDT - 07/11/2025 11:59 PM CDT Hospital Encounter [facility] [address] [place] [phone] Corine Tabares FNP Discharge Disposition: Home or Self Care 07/11/2025 8:00 AM CDT Office Visit [facility] [address] [phone] Corine Tabares FNP Type 2 diabetes mellitus without complication, without long-term current use of insulin ([facility]) (Primary Dx); Mixed hyperlipidemia; HTN (hypertension), benign; Atherosclerosis of nondalton coronary artery of nondalton heart without angina pectoris; Prostate cancer screening; Spasm of thoracic back muscle; Ventral hernia without obstruction or gangrene; Right wrist pain; Injury of right scapholunate ligament with no instability, initial encounter 07/11/2025 Results Follow-Up [facility] [address] [place] [phone] Corine Tabares FNP XR WRIST 3+ VW RIGHT, HEMOGLOBIN A1C, PSA, Additional followed-up results: 3 07/10/2025 External Device Data STL ABSTRACTION Provider, Abstract from Last 3 Months Immunizations Immunization Administration Dates Next Due (AREXVY)(60 YR UP) RSV, SD MBINANT, PROTEIN SUBUNIT RSVPREF, ADJUVANT RECONSTITUTED, 0.5 ML, PF 09/02/2023 (MODERNA)(6 MO-5 YRS PRIMARY SERIES) COVID-19 VACCINE - EMERGENCY USE AUTHORIZATION, MRNA(PF) 25 MCG/0.25 ML IM SUSP 04/18/2022 (PNEUMOVAX 23)(50 YRS UP) PNEUMOCOCCAL POLYSACCHARIDE (PPV23) 0.5 ML, IM 03/27/2021 (SPIKEVAX) (12 YRS UP PRIMAR Y SERIES) COVID-19 VACCINE - MRNA-1273(PF) 100 MCG/0.5 ML IM SUSP 02/02/2025,06/20/2023,04/18/2022,07/28,12/10/2020,11/08/2020 01/18/2024 (SPIKEVAX)(12YR UP) COVID-19 VACCINE, MRNA (PF)50 MCG/0.5 ML, IM SYRINGE 06/16/2024,06/20/2023 INFLUENZA VACCINE HIGH DOSE QUADRIVALENT 65 YR UP PF IM 06/16/2024,06/20/2023,06/10/2022,04/28,06/13/2019 INFLUENZA VACCINE HIGH DOSE TRIVALENT SPLIT VIRUS, (65 YR UP), 0.5ML (PF), IM 06/06/2025 Influenza Seasonal Unspecifi ed Formulation IM 07/27/2022,06/10/2022,06/09/2021,04/28 Influenza Vaccine High Dose 65+ Yrs IM 06/13/2019 Influenza Vaccine Tri Split 4+ Im 05/16/2020 Family History Medical History Relation Name Comments Cancer Father Barber Vizcarra Lymphoma Father Barber Vizcarra Asthma Maternal Grandfather Lamine Laureano Cancer Maternal Grandfather Lamine Laureano Respiratory Disease Maternal Grandfather Lamine Laureano Asthma Maternal Grandmother Kaylee Sridevi Cancer Maternal Grandmother Kaylee Sridevi Lung Cancer Maternal Grandmother Kaylee Sridevi Cancer Mother Kaylee Pepe Colon Cancer Mother Kaylee Pepe Diabetes Mother Kaylee Pepe Hypertension Mother Kaylee Pepe Liver Cancer Mother Kaylee Pepe Heart Disease Paternal Grandfather Barber Vizcarra Hypertension Sister Kristen Hill Relation Name Status Comments Father Barber Vizcarra Maternal Grandfather Lamine Leonadrow Alive Maternal Grandmother Kaylee Sridevi Alive Mother Kaylee Pepe Paternal Grandfather Barber Vizcarra Alive Sister Kristen Hill Alive Social History Tobacco Use Types Packs/Day Years Used Date Smoking Tobacco: Never Passive Smoke Exposure: Never Smokeless Tobacco: Never Tobacco Cessation:Counseling Given: No Alcohol Use Standard Drinks/Week Comments Not Currently 0 (1 standard drink = 0.6 oz pur e alcohol) Financial Resource Strain Answer Date R ecorded How hard is it for you to pa y for the very basics like food, housing, medical care, and heating? Not hard at all 01/05/2023 Food Insecurity Answer Date Recorded In the past 12 months, have you worried that your food would run out before you had money to buy more? Never true 01/05/2023 In the past 12 months, did y ou run out of food and didn't have money to buy more? Never true 01/05/2023 Transportation Needs Answer Date Record ed In the past 12 months, has l ack of transportation kept you from medical appointments or from getting medications? No 01/05/2023 Lack of Transportation (Non-Medical) Not on file 01/05/2023 Feeling Safe Answer Date Recorded Are you in a relationship wi th someone who hurts you emotionally and/or physically? No 01/21/2024 Sex and Gender Information Value Date Recorded Sex Assigned at Male 06/15/2024 4:00 PM CDT Legal Sex Male 10:40 PM NET SOFTWARE ARCHITECT Gender Identity Male 06/15/2024 4:00 PM CDT Sexual Orientation Straight 06/15/2024 4 :00 PM CDT Last Filed Vital Signs Vital Sign Reading Time Taken Comments Blood Pressure 153/80 09/05/2025 9:15 AM NET SOFTWARE ARCHITECT Pulse 81 09/05/2025 9:15 AM NET SOFTWARE ARCHITECT Temperature 36.6 C (97.8 F) 09/05/2025 9:15 AM NET SOFTWARE ARCHITECT Respiratory Rate 16 09/05/2025 9:15 AM NET SOFTWARE ARCHITECT Oxygen Saturation 97% 09/05/2025 9:15 AM NET SOFTWARE ARCHITECT Inhaled Oxygen Concentration - - Weight 107.9 kg (237 lb 12.8 oz) 09/05/2025 9:15 AM NET SOFTWARE ARCHITECT Height 182.9 cm (6') 09/05/2025 9:15 AM NET SOFTWARE ARCHITECT Body Mass Index 32.25 09/05/2025 9:15 AM NET SOFTWARE ARCHITECT Plan of Treatment Upcoming Encounters Date Type Department Care Team (Late st Contact Info) Description 10/12/2025 8:00 AM NET SOFTWARE ARCHITECT Office Visit [facility] [address] [phone] Corine Tabares FNP [address] [phone] 02/12/2026 8:20 AM CDT Office Visit [facility] [place] [address] [place] [phone] Kevan Sy MD [address] [place] [phone] Health Maintenance Due Date Last Done Comments FIT/ DNA Q 3 YEARS (AUTO ORDER) 1971 FIT/FOBT Q 1 YEAR (AUTO ORDER) 1971 FLEX SIG/CT COLONOGRAPHY Q 5 YEARS (AUTO ORDER) 1971 DTAP/TDAP/TD VACCINES (1 - Tdap) 1972 FIT-DNA Q 3 years 1998 FIT/FOBT Q 1 year 1998 Flex Sig/CT Colonography Q 5 years 1998 ZOSTER VACCINE (1 of 2) 2003 PNEUMOCOCCAL VACCINE 50+ YEA RS (2 of 2 - PCV) 03/27/2022 03/27/2021 DIABETES ANNUAL FOOT EXAM 01/09/2025 01/10/2024, 07/2023 COVID-19 Vaccine (2024-2 6 season) 2025 02/02/2025, 06/16/2024, 06/20/2023, Additional history exists DIABETES MICROALBUMIN ANNUAL SCREEN 11/10/2025 11/10/2024, 01/10/2024, 01/05/2023, Additional history exists DIABETES HBA1C Q 6 MONTHS 01/09/20262024, 11/10/2024, 01/10/2024, Additional history exists DIABETES ANNUAL RETINAL EXAM 02/08/2026, 06/14/2023, 12/31/2021, Additional history exists DIABETES: A1C (Auto Order) 07/11/202607/11, 11/10/2024, 01/10/2024, Additional history exists LDL CHOLESTEROL ANNUAL 07/11/2026 , 11/10/2024, 01/10/2024, Additional history exists COLORECTAL CANCER SCREENING (AUTO ORDER) 01/20/2034 01/21/2024, 02/15/2014 COLORECTAL SCREENING 01/20/2034 01/21/2024, 02/16/20 Colorectal Cancer Screening (AUTO ORDER) 01/20/2034 Colorectal Cancer Screening 01/20/2034 RSV VACCINE (60+ or ) Completed 09/02/2023 KHE uACR (Auto Order) Completed 11/10/2024 , 01/10/2024, 01/05/2023, Additional history exists Medicare Advantage (OR) Preventative Visit/Annual Wellness Visit Completed 01/09/2025, 01/10/2024, 01/05/2023, Additional history exists INFLUENZA VACCINE Completed 06/06/2025, , 06/20/2023, Additional history exists KHE eGFR (Auto Order) Completed 07/11/2025 , 11/10/2024, 01/10/2024, Additional history exists Medical Devices Implanted Type [employer] Device Identifier Shelf Expiration Date Model / Serial / Lot Shoulder Shoulder Procedures Procedure Name Priority Date/Time Associated Diagnosis Comments XR WRIST 3+ VW RIGHT Routine 07/11/2025 9:16 AM CDT Right wrist pain CBC WITH DIFFERENTIAL Routine 07/11/2025 8:47 AM CDT HTN (hypertension), benign COMPREHENSIVE METABOLIC PANEL Routine 07/11/2025 8:47 AM CDT Type 2 diabetes mellitus without complication, without long-term current use of insulin ([facility]/HCC) LIPID PANEL Routine 07/11/2025 8:47 AM CDT Mixed hyperlipidemia PSA Routine 07/11/2025 8:47 AM CDT Prostate cancer screening HEMOGLOBIN A1C Routine 07/11/2025 8:47 AM CDT Type 2 diabetes mellitus without complication, without long-term current use of insulin (CMS/HCC) HM DIABETES EYE EXAM Routine 02/08/2025 MICROALBUMIN/CREATINI NE RATIO, RANDOM UR Routine 11/10/2024 11:03 AM NET SOFTWARE ARCHITECT Type 2 diabetes mellitus without complication, without long-term current use of insulin ENDOSCOPY, COLON, SCREENING Routine 02/15/2014 from Last 3 Months or Most Recently Relevant to Health Maintenance Results * XR WRIST 3+ VW RIGHT (07/11/2025 9:16 AM CDT) Anatomical Region Laterality Modality Wrist / Hand Computed Radiogr aphy 07/11/2025 9:17 AM CDT Impressions 07/11/2025 9:32 AM CDT IMPRESSION: See below. Exam: XR WRIST 3+ VW RIGHT Date/Time of Exam: 07/11/2025 9:16 AM Reason For Exam: See Diagnosis. Diagnosis: Right wrist pain. Findings: There is irregularity of the waist of the scaphoid, which is incompletely evaluated on this exam. There is no dedicated scaphoid view. Cannot exclude an age-indeterminate scaphoid waist fracture. There is widening of the scapholunate interval which measures 7 mm, consistent with age indeterminate injury to the scapholunate ligament. There is narrowing of the radiocarpal joint space. Narrative Procedure Note Lamine Rueda MD - 07/11/2025 IMPRESSION: See below. Exam: XR WRIST 3+ VW RIGHT Date/Time of Exam: 07/11/2025 9:16 AM Reason For Exam: See Diagnosis. Diagnosis: Right wrist pain. Findings: There is irregularity of the waist of the scaphoid, which is incompletely evaluated on this exam. There is no dedicated scaphoid view. Cannot exclude an age-indeterminate scaphoid waist fracture. There is widening of the scapholunate interval which measures 7 mm, consistent with age indeterminate injury to the scapholunate ligament. There is narrowing of the radiocarpal joint space. Corine Tabares [facility] IMAGING ORDER BYRON Final Result * CBC WITH DIFFERENTIAL (07/11/2025 8:47 AM CDT) WBC 6.3 3.8 - 10.8 Thousand/u L [facility] RBC 4.59 4.20 - 5.80 Million/uL [facility] HEMOGLOBIN 14.4 13.2 - 17.1 g/dL [facility] HEMATOCRIT 43.6 38.5 - 50.0 % [facility] MCV 95.0 80.0 - 100.0 fL [facility] MCH 31.4 27.0 - 33.0 pg [facility] MCHC 33.0 32.0 - 36.0 g/dL [facility] Comment: For adults, a slight decrease in the calculated MCHC value (in the range of 30 to 32 g/dL) is most likely not clinically significant; however, it should be interpreted with caution in correlation with other red cell parameters and the patient's clinical condition. RDW 12.9 11.0 - 15.0 % [facility] PLATELETS 185 140 - 400 Thousand/u L [facility] MPV 10.5 7.5 - 12.5 fL [facility] NEUTROPHIL ABSOLUTE 3,648 1,500 - 7,800 cells/uL [facility] LYMPHOCYTE ABSOLUTE 1,896 850 - 3,900 cells/uL [facility] MONOCYTE ABSOLUTE 611 200 - 950 cells/uL [facility] EOSINOPHIL ABSOLUTE 107 15 - 500 cells/uL [facility] BASOPHILS ABSOLUTE 38 0 - 200 cells/uL [facility] NEUTROPHIL 57.9 % [facility] LYMPHOCYTES 30.1 % [facility] MONOCYTE 9.7 % [facility] EOSINOPHILS 1.7 % [facility] BASOPHILS 0.6 % [facility] Comment: Test Performed at: [facility] [address] [facility] [address] Felipa Marino MD Blood 07/11/2025 8:47 AM CDT 07/12/2025 2:54 AM CDT us Corine Tabares [facility] HEMATOLOGY ORDERABLES Fi nal Result [facility] [phone] [address] [address] [facility] [place] [address] * PSA (07/11/2025 8:47 AM CDT) PSA 2.86 < OR = 4.00 ng/mL [facility] Comment: The total PSA value from this assay system is standardized against the WHO standard. The test result will be approximately 20% lower when compared to the equimolar-standardized total PSA (Ismael Iveth). Comparison of serial PSA results should be interpreted with this fact in mind. This test was performed using the Siemens chemiluminescent method. Values obtained from different assay methods cannot be used interchangeably. PSA levels, regardless of value, should not be interpreted as absolute evidence of the presence or absence of disease. Test Performed at: [facility] [id number] [facility] [place] [address] Felipa Marino MD Blood 07/11/2025 8:47 AM CDT 07/12/2025 2:54 AM CDT Corine Tabares [facility] CHEMISTRY ORDERABLES Fin al Result [facility] [phone] [facility] [address] [place] [address] * (ABNORMAL) HEMOGLOBIN A1C (07/11/2025 8:47 AM CDT) HEMOGLOBIN A1C 7.1(H) <5.7 % [facility] Comment: For someone without known diabetes, a hemoglobin A1c value of 6.5% or greater indicates that they may have diabetes and this should be confirmed with a follow-up test. For someone with known diabetes, a value <7% indicates that their diabetes is well controlled and a value greater than or equal to 7% indicates suboptimal control. A1c targets should be individualized based on duration of diabetes, age, comorbid conditions, and other considerations. Currently, no consensus exists regarding use of hemoglobin A1c for diagnosis of diabetes for children. ESTIMATED AVERAGE GLUCOSE (MG/DL) 157 mg/dL [facility] ESTIMATED AVERAGE GLUCOSE (MMOL/L) 8.7 mmol/L [facility] Comment: Test Performed at: [facility] [address] [facility] [place] [address] Felipa Marino MD Blood 07/11/2025 8:47 AM CDT 07/12/2025 2:54 AM CDT Corine Tabares [facility] CHEMISTRY ORDERABLES Fin al Result [facility] [phone] [facility] [address] [place] [address] * (ABNORMAL) LIPID PANEL (07/11/2025 8:47 AM CDT) CHOLESTEROL 116 <200 mg/dL [facility] HDL 40 > OR = 40 mg/dL [facility] TRIGLYCERIDE 170(H) <150 mg/dL [facility] LDL CALCULATED 51 mg/dL (calc) [facility] Comment: Reference range: <100 Desirable range <100 mg/dL for primary prevention; <70 mg/dL for patients with CHD or diabetic patients with > or = 2 CHD risk factors. LDL-C is now calculated using the Cristobal-Hunt calculation, which is a validated novel method providing better accuracy than the Friedewald equation in the estimation of LDL-C. Cristobal RIVERA et al. EL. 2013;310(19): 9642-4789 (http://education.Zerve.Extricom/faq/IKH131) CHOL/HDL RATIO 2.9 <5.0 (calc) [facility] NON-HDL CHOLESTEROL 76 <130 mg/dL (calc) [facility] Comment: For patients with diabetes plus 1 major ASCVD risk factor, treating to a non-HDL-C goal of <100 mg/dL (LDL-C of <70 mg/dL) is considered a therapeutic option. Test Performed at: [facility] [address] [facility] [place] [address] Felipa Marino MD Blood 07/11/2025 8:47 AM CDT 07/12/2025 2:54 AM CDT us Corine Zully Tabares [facility] CHEMISTRY ORDERABLES Fin al Result [facility] [phone] [facility] [address] [phone] * (ABNORMAL) COMPREHENSIVE METABOLIC PANEL (07/11/2025 8:47 AM CDT) GLUCOSE 151(H) 65 - 99 mg/dL [facility] Comment: Fasting reference interval For someone without known diabetes, a glucose value >125 mg/dL indicates that they may have diabetes and this should be confirmed with a follow-up test. BUN 15 7 - 25 mg/dL [facility] CREATININE 0.92 0.70 - 1.28 mg/dL [facility] GFR 89 > OR = 60 mL/min/1. 73m2 [facility] BUN/CREAT RATIO SEE NOTE: 6 - 22 (calc) [facility] Comment: Not Reported: BUN and Creatinine are within reference range. SODIUM 138 135 - 146 mmol/L [facility] POTASSIUM 4.2 3.5 - 5.3 mmol/L [facility] CHLORIDE 104 98 - 110 mmol/L [facility] CO2 26 20 - 32 mmol/L [facility] CALCIUM 9.2 8.6 - 10.3 mg/dL [facility] TOTAL PROTEIN 7.4 6.1 - 8.1 g/dL [facility] ALBUMIN 4.6 3.6 - 5.1 g/dL [facility] GLOBULIN 2.8 1.9 - 3.7 g/dL (calc) [facility] ALBUMIN/GLOBULIN RATIO 1.6 1.0 - 2.5 (calc) [facility] BILIRUBIN TOTAL 0.8 0.2 - 1.2 mg/dL [facility] ALKALINE PHOSPHATASE 51 35 - 144 U/L [facility] AST 20 10 - 35 U/L [facility] ALT 24 9 - 46 U/L [facility] Comment: Test Performed at: [facility] [address] [place] [address] Felipa Marino MD Blood 07/11/2025 8:47 AM CDT 07/12/2025 2:54 AM CDT Corine MADRIDP CHEMISTRY ORDERABLES Fin al Result [facility] [phone] [facility] [address] [facility] [place] [address] * DIABETES EYE EXAM (02/08/2025) Pathologist [facility] DIABETIC RETINOPATHY SCREENING Negative Abstract Provider HEALTH MAINTENANCE Edited Resu lt - Final * MICROALBUMIN/CREATININE RATIO, RANDOM UR (11/10/2024 11:03 AM NET SOFTWARE ARCHITECT) Pathologist [facility] Creatinine, Urine 177 20 - 320 mg/dL [facility] MICROALBUMIN, URINE 0.5 See Note: mg/dL [facility] Comment: Reference Range: Reference Range Not established MICROALBUMIN/CREAT RATIO, UR 3 <30 mg/g creat [facility] Comment: The ADA defines abnormalities in albumin excretion as follows: Albuminuria Category Result (mg/g creatinine) Normal to Mildly increased <30 Moderately increased 30-299 Severely increased > OR = 300 The ADA recommends that at least two of three specimens collected within a 3-6 month period be abnormal before considering a patient to be within a diagnostic category. Test Performed at: [facility] [address] [facility] [place] [address] Felipa Marino MD Urine URINE SPECIMEN OBTAINED BY CLEAN CATCH PROCEDURE / Unknown 11/10/2024 11:03 AM NET SOFTWARE ARCHITECT 11/11/2024 6:08 AM NET SOFTWARE ARCHITECT Corine MADRIDP URINE ORDERABLES Final R esult [facility] [phone] [facility] [address] [address] [phone] * ENDOSCOPY, COLON, SCREENING (02/15/2014) us Abstract Provider GI PROCEDURE ORDERABLES Final Result from Last 3 Months or Most Recently Relevant to Health Maintenance Insurance [employer] [facility] Advance Directives For more information, please contact: [phone] * Full Code (Latest Code Status on File) Date Activated Date Inactivated Comments 01/21/2024 8:18 AM 01/21/2024 12:08 PM Care Teams Digester Operator Relationship Specialty Start Date End Date Kevan Sy MD [address] [address] PCP - General Family Practice 10/06/19
[2025-09-24 21:39] VITALS: BP 182/100; PULSE 81; RESP 20; TEMP 36.4; O2SAT 94; BMI 32.3
--- NOTE | 2025-09-24 22:16 | W.ED.RECABL ---
HPI - Recheck/Abnormal Lab/Rx General: Chief Complaint: Recheck/Abnormal Lab/Rx Stated Complaint: Lt Foot Post op bleeding through bandages Time Seen by Provider: 09/24/25 21:40 History of Present Illness: Patient is a 69-year-old gentleman that presents to the emergency room after left foot hallux rigidus, hammertoes, tailor button to left foot today. He comes to the ER with concern of excessive bleeding around the wound. He has postop surgical dressing, therefore he had not removed it. He had oozing through his hard shoe. His surgery was today and he left at 12:30 PM after recovery. No additional issues with pain, nausea, vomiting. Related Data Home Medications ?Medication ?Instructions ?Recorded ?Confirmed lisinopril 10 mg tablet 10 mg PO DAILY 12/25/19 09/24/25 metformin 500 mg tablet 1,000 mg PO DAILY 01/02/20 09/24/25 multivitamin 1 tab PO DAILY 04/01/20 09/24/25 omega-3 fatty acids 1,000 mg 1,000 mg PO DAILY 04/01/20 09/24/25 capsule (Fish Oil Concentrate) isosorbide dinitrate 5 mg tablet 5 mg PO BID 09/18/25 09/24/25 Previous Rx's ?Medication ?Instructions ?Recorded aspirin 81 mg tablet,delayed 81 mg PO DAILY #90 tabs 12/26/19 release nitroglycerin 0.4 mg sublingual 0.4 mg sublingual Q5M PRN chest 05/02/24 tablet pain #30 tabs Crutches #1 ea 11/29/24 Knee Scooter #1 ea 11/29/24 metoprolol succinate 25 mg 25 mg PO DAILY #90 tabs 01/19/25 tablet,extended release 24 hr ankle brace #1 ea 07/24/25 atorvastatin 40 mg tablet 40 mg PO BEDTIME #90 tabs 09/24/25 cephalexin 500 mg capsule 500 mg PO TID 7 days #21 caps 09/24/25 hydrocodone 5 mg-acetaminophen 325 1 tab PO Q6H PRN pain #28 tabs 09/24/25 mg tablet Allergies Allergy/AdvReac Type Severity Reaction Status Date / Time No Known Allergies Allergy Verified 09/24/25 21:42 Review of Systems General: Reports: 10 or more systems reviewed and unremarkable except in HPI and below Const: Denies: fever(s), chills or body aches Card: Denies: chest pain or palpitations Resp: Denies: dyspnea or productive cough GI: Denies: abdominal pain, nausea or vomiting Musc: Reports: extremity swelling, joint pain, limited range of motion and other (bleeding around surgical area); Denies: neck pain or back pain Neuro: Denies: headache(s), numbness in extremities, weakness in extremities, sensory changes or lack of coordination Grey/Lymph: Reports: easy bruising and easy bleeding PFSH ED PFSH: Medical History (Updated 09/24/25 @ 22:41 by FATOUMATA Joiner) Dyslipidemia CAD (coronary artery disease) Coronary artery disease HTN (hypertension) Diabetes mellitus, type II Surgical History S/P cholecystectomy Status post laparoscopic cholecystectomy (07/10/20) H/O circumcision H/O vasectomy with reversal History of tonsillectomy H/O heart artery stent Family History Mother Cancer Diabetes Hypertension Grandfather Cancer Hypertension Grandmother Cancer Hypertension Sister Hypertension Father Cancer Denies family history of CAD (coronary artery disease) Clotting disorder Dementia Hyperlipidemia Psychiatric illness Chronic kidney disease (CKD) Suicide Anesthesia complication Bleeding disorder Family history of premature coronary artery disease Lung disease Stroke Social History Smoking and tobacco/nicotine status: never used tobacco/nicotine Alcohol intake: current Alcohol intake frequency: holidays/special occasions only Alcohol type: beer Substance/Drug Use: never Household members: spouse Marital status: Current occupational status: retired Physical Exam Const: COMMON NORMALS: no acute distress, average body habitus, patient oriented x3, no limitations, healthy appearing, alert and well nourished GENERAL APPEARANCE: cooperative; not anxious and not combative ORIENTATION/CONSCIOUSNESS: Yes awake, Yes oriented to person, Yes oriented to place and Yes oriented to time HENMT: COMMON NORMALS: normocephalic and atraumatic HEAD & SCALP: normocephalic and atraumatic Eye: GENERAL EYE: appearance normal, both eyes and all related structures EYELID: eyelids normal Chest: COMMONS NORMALS: normal inspection of the chest Resp: COMMON NORMALS: normal respiratory effort EFFORT & INSPECTION: Yes able to speak in complete sentences and Yes symmetric chest movement GI: COMMON NORMALS: Normal to inspection, nondistended, normoactive bowel sounds present, Soft to palpation and non-tender PALPATION: Yes Soft to palpation Extremity: COMMON NORMALS: full ROM and capillary refill normal NARRATIVE EXTREMITY EXAM: Left foot: Oozing to first toe proximally on incision. No gross bleeding. No redness. LEFT LOWER EXTREMITY: Yes foot & digits Neuro: COMMON NORMALS: patient oriented x3 SENSORIUM/ORIENTATION: Yes alert, Yes oriented to person, Yes oriented to place and Yes oriented to time SPEECH: speech normal GAIT: Yes Normal gait present Psych: ATTITUDE: Yes engaged ACTIVITY/MOTOR BEHAVIOR: Yes appropriate eye contact ATTENTION/CONCENTRATION: Yes attention grossly intact MEMORY/COGNITION: Yes memory grossly intact Skin: COMMON NORMALS: no rashes or lesions noted, turgor normal and no jaundice GENERAL SKIN EXAM: no rashes or lesions noted and turgor normal Course Consultations: Consultation #1: Discussed with Dr. Kong on-call for Dr. Lovell. Picture sent with patient and Dr. Kong's request. Dr. Kong recommends elevation, rewrapping starting with Xeroform, 4 x 4. Patient has follow-up on Wednesday, however will call the office to make sure he does not need to be reevaluated prior to next Wednesday. Vital Signs: Vital signs: Vital Signs Temperature 97.6 F 09/24/25 21:39 Pulse Rate 81 09/24/25 21:39 Respiratory Rate 20 H 09/24/25 21:39 Blood Pressure 182/100 09/24/25 21:39 Pulse Oximetry 94 09/24/25 21:39 Oxygen Delivery Me thod Room Air 09/24/25 21:39 MDM - Recheck/Abnormal Lab/Rx Medical Decision Making Patient is a 69-year-old gentleman that had left foot surgery today with bleeding into his boot, and on his surgical dressing. On evaluation at bedside, his surgical dressing was taken down, the area was evaluated. His left big toe/first toe proximal incision shows some mild oozing. This is minimal in nature and appears appropriate for course of care. Discussed the case with on-call branch services manager Dr. Kong. Xeroform applied, 4 x 4's, and Reddy wrap. Patient will follow-up with Dr. Lovell's office tomorrow. Medical Records I reviewed the patient's medical records. Lab Data I reviewed the patient's lab results. No radiology studies performed this visit Discharge Plan Discharge Patient Disposition: Home Clinical Impression: Post-op bleeding Qualifiers: Surgical complication system/body Area: subcutaneous tissue Procedure type: non-dermatologic Qualified Code(s): L76.22 - Postprocedural hemorrhage of skin and subcutaneous tissue following other procedure Condition: Stable Prescriptions: No Action omega-3 fatty acids [Fish Oil Concentrate] 1,000 mg capsule 1,000 mg PO DAILY multivitamin Tablet 1 tab PO DAILY nitroglycerin 0.4 mg tablet, sublingual 0.4 mg sublingual Q5M PRN (Reason: chest pain) Qty: 30 2RF Rx Instructions: do not exceed 3 doses per episode (DME) Knee Scooter See Rx Instructions .Route .MEDSUPPLY Qty: 1 0RF Rx Instructions: As directed by Home (DME) Crutches See Rx Instructions .Route .MEDSUPPLY Qty: 1 0RF Rx Instructions: As directed by Home (DME) ankle brace See Rx Instructions .Route .MEDSUPPLY Qty: 1 0RF Rx Instructions: As directed by [facility] metoprolol succinate 25 mg tablet extended release 24 hr 25 mg PO DAILY Qty: 90 3RF atorvastatin 40 mg tablet 40 mg PO BEDTIME Qty: 90 3RF lisinopril 10 mg Tablet 10 mg PO DAILY aspirin 81 mg Tablet,Delayed Release (Dr/Ec) 81 mg PO DAILY Qty: 90 4RF metformin 500 mg tablet 1,000 mg PO DAILY isosorbide dinitrate 5 mg tablet 5 mg PO BID hydrocodone-acetaminophen 5-325 mg tablet 1 tab PO Q6H PRN (Reason: pain) Qty: 28 0RF cephalexin 500 mg capsule 500 mg PO TID 7 Days Qty: 21 0RF Discharge Orders: Discharge ED (Routine); Ordered 09/24/25 Ordered By: Shy Erickson Referrals: Kevan Sy [Primary Care Provider, Family Practice] Patient Instructions: Opioid Safety, Pain Management, Patient Portal & Addy Instructions Activity Restrictions/Additional Instructions: - Per Dr. oKng, Dr. Lovell's partner: Make sure you elevate your foot to prevent bleeding for the next 24 hours. - Replaced on the wound: Xeroform, sterile 4 x 4, nonadherent dressing, Reddy wrap - Call your branch services manager office tomorrow to follow-up in case they want to see you before Wednesday. - Icing this area will help with swelling, bleeding, and pain - Please return to the ED if you have ongoing issues, fever greater than 100.4 ?F Thank you for choosing [facility] for your healthcare needs today. You have been screened and evaluated and felt safe for discharge. Health conditions do change or evolve sometimes and as such it is important that you follow up with your Primary Doctor to be re checked, 3-5 days is a general good time frame for follow up. You are always welcome to return to the ED for re assessment if your symptoms are worsening or you have new concerns Print Language: Qatari Coding Level of Care Code ED Copper Plater for Daisha Pimentel
== END 2025-09-24 23:13 | disposition home or self-care (01) ==
PROVIDERS: Emergency Provider Physician Assistant; PCP Family Medicine
DX: L76.22 Postprocedural hemorrhage of skin and subcutaneous tissue following other procedure (principal); Z79.82 Long term (current) use of aspirin; Z79.84 Long term (current) use of oral hypoglycemic drugs; E78.5 Hyperlipidemia, unspecified; I25.10 Atherosclerotic heart disease of native coronary artery without angina pectoris; I10 Essential (primary) hypertension; E11.9 Type 2 diabetes mellitus without complications
CPT/HCPCS: 99282

== ENCOUNTER → 2025-09-25 08:19 | Outpatient (BNVA) | payer MEDICARE, SELFPAY | PROVIDERS: PCP Family Medicine; Visit Provider Podiatrist Foot & Ankle Surgery | DX: M20.41 Other hammer toe(s) (acquired), right foot (principal); M20.42 Other hammer toe(s) (acquired), left foot; M21.621 Bunionette of right foot; M21.622 Bunionette of left foot; E11.9 Type 2 diabetes mellitus without complications; Z98.1 Arthrodesis status; M19.072 Primary osteoarthritis, left ankle and foot; M20.12 Hallux valgus (acquired), left foot; M20.5X2 Other deformities of toe(s) (acquired), left foot; E11.69 Type 2 diabetes mellitus with other specified complication; Z79.84 Long term (current) use of oral hypoglycemic drugs | CPT/HCPCS: 99024 ==